=== PATIENT | male | born 1945 | race African-American/Black ===

== ENCOUNTER → 2017-08-16 | Outpatient (CLI) | payer OTHER ==
[2017-08-16 11:54] LABS: BASOPHILS % (AUTO) 0.4 % (0.2-1.0); EOSINOPHILS # (AUTO) 0.1 x10^3/uL (0.0-0.2); EOSINOPHILS % (AUTO) 1.3 % (0.9-2.9); HEMATOCRIT 32.7 % (42.0-54.0); HEMOGLOBIN 10.5 g/dL (13.5-18.0); LYMPHOCYTES % (AUTO) 14.6 % (21.0-51.0); MEAN CORPUSCULAR HEMOGLOBIN 23.1 pg (27.0-34.0); MEAN CORPUSCULAR HGB CONC 32.1 g/dL (33.0-35.0); MEAN CORPUSCULAR VOLUME 71.8 fL (80.0-100.0); MONOCYTES # (AUTO) 0.6 x10^3/uL (0.3-0.8); MONOCYTES % (AUTO) 8.1 % (0.0-13.0); NEUTROPHILS # (AUTO) 5.2 x10^3/uL (2.2-4.8); NEUTROPHILS % (AUTO) 75.6 % (42.0-75.0); PLATELET COUNT 293 X10^3/uL (150.0-450.0); RED BLOOD COUNT 4.56 X10^6/uL (4.7-6.0); RED CELL DISTRIBUTION WIDTH 16.2 % (11.6-16.5); WHITE BLOOD COUNT 6.9 X10^3/uL (3.6-10.0)
--- NOTE | 2017-08-16 12:13 | US ---
HISTORY: Frequent urination Study: Renal ultrasound: Multiplanar ultrasonographic examination of the kidneys and urinary bladde r was performed. Comparison: None Findings: On the images submitted me the kidneys overall are of normal size, echogenicity and echotexture bilat erally. Mild cortical thinning is noted bilaterally. No evidence of renal mass or hydronephrosis is noted. Right kidney: 10.8 cm in length by 5.7 x 5.8 cm. Left kidney: 11.7 cm in length by 6.4 x 7.1 cm. The visualized urinary bladder is normal. IMPRESSION: 1. 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 2. Otherwise, negative renal ultrasound. Reported By:
[2017-08-16 12:15] LABS: ALBUMIN 2.9 g/dL (3.4-5.0); CALCIUM 7.9 mg/dL (8.5-10.1); CARBON DIOXIDE 31.3 mmol/L (21-32); COR CA(FOR HYPOALB) 8.8 mg/dL (8.5-10.1); CREATININE 1.47 mg/dL (0.70-1.30); PHOSPHORUS 3.6 mg/dL (2.6-4.7)
[2017-08-16 12:16] LABS: HEMOGLOBIN A1C 6.8 %; HYPOCHROMASIA 1+; PLATELET MORPHOLOGY COMMENT NORMAL (NORMAL)
[2017-08-16 12:17] LABS: ANISOCYTOSIS SLIGHT; MICROCYTOSIS SLIGHT
[2017-08-16 12:56] LABS: TOTAL PROTEIN,URINE 10.7 mg/dl (0-11.9)
[2017-08-16 13:11] LABS: CREATININE,URINE 86.77 mg/dL (30-125)
== END ==
LOC: RAD 11:24
PROVIDERS: ATTEND Internal Medicine
DX: N18.2 Chronic kidney disease, stage 2 (mild) (principal); E11.9 Type 2 diabetes mellitus without complications
CPT/HCPCS: 36415; 76770; 80069; 82570; 83036; 83883; 84157; 85025; 86308

== ENCOUNTER 2020-12-22 08:09 | Observation (INO) ==
[2020-12-22 08:14] VITALS: BMI 39.4
--- NOTE | 2020-12-22 08:37 | DR.DIZZY ---
HPI Time seen Time Seen by Provider: 12/22/20 08:32 PCP Primary Care Physician: MELLISA HPI Comment HPI Comment: PATIENT WITH A HISTORY OF CORONARY ARTERY DISEASE, CORONARY STENTS X 7, COMPLAINS OF INCREASING DYSPNEA X 4 DAYS, INCREASING SWELLING IN LEGS,BODY ACHES . HAS PRODUCTIVE COUGH WHITE SPUTUM, LAST VACCINE MAR 2020. DENIES FEVER AND CHEST PAIN. Complaint Chief Complaint Doctor Comments: DYSPNEA, BODY ACHES Chief Complaint:: PT C/O BODY ACHES, WEAKNESS, SHORTNESS OF BREATH THAT STARTED 4 DAYS AGO. PT STATES HE HAS BEEN HAVING STOP AND CATCH HIS BREATH WHEN HE WALKS AROUND. COVID-19 Coronavirus risk:travel/contact w/high risk person: No Has patient experienced Coronavirus symptoms: Yes Coronavirus symptoms experienced: Shortness of Breath Source History Provided: Patient and Family Member Mode of Arrival Mode of Arrival: Wheelchair Timing Onset of Chief Complaint: 12/18/20 Onset of Symptoms Start Date: 12/18/20 Duration Duration: Constant Location of Weakness Weakness Location: Generalized Context Onset: With light exertion History of: DM Stroke Symptoms: None Severity Severity: Abnormal activity level PMH PMH Past Medical History: Yes Past Medical History: Anxiety, Diabetes, Dyslipidemia, Hypertension and IA Past Surgical History: Yes Surgical History: Angioplasty/Stents and Ortho Surgery Family History History of Family Medical Conditions: Yes Family Medical History: Diabetes Mellitus Social History Does patient currently use any type of tobacco product: No Have you used tobacco products in the last 12 months: No Type of Tobacco Use: None Does any household member use tobacco: No Alcohol Use: None Do you use any recreational Drugs:: No Lives With: Family Lives Where: Home Travel Risk Coronavirus risk:travel/contact w/high risk person: No Has patient experienced Coronavirus symptoms: Yes Coronavirus symptoms experienced: Shortness of Breath Infectious screening In the last 2 months have you had wt loss of >10#?: NO Have you had fever, night sweats or hemotysis?: No Have you traveled outside the country in the last 6 months?: No Isolation: Droplet ROS Review of Systems Constitutional: See HPI, Chills, Malaise and Other (GENERALIZED ACHES) Eyes: No Symptoms Reported ENTM: No Symptoms Reported Respiratoy: Productive Cough, Short of Breath (AT REST AND MARKED EXERTIONAL DYSPNEA) and Wheezing Cardiovascular: Edema Gastrointestinal/Abdominal: No Symptoms Reported Genitourinary: No Symptoms Reported Neurological: Weakness Musculoskeletal: No Symptoms Reported Integumentary: No Symptoms Reported Hematologic/Lymphatic: No Symptoms Reported Endocrine: No Symptoms Reported Psychiatric: No Symptoms Reported All Other Systems: Reviewed and Negative PE Vital Signs Vitals: Temperature 98.0 F Pulse Rate 82 Respiratory Rate 16 Blood Pressure [Right Arm] 143/65 Blood Pressure 174/77 O2 Sat by Pulse Oximetry 98 General Limitations: Physical Limitation General Appearance: Alert and In No Apparent Distress Head Head Exam: Normal Inspection Eyes Eye exam: Normal Appearance, PERRL and EOMI Pupils: Regular, Round: Bilateral ENT ENT Exam: Normal Exam Neck Neck Exam: Normal Inspection Chest Chest Inspection: Normal Inspection and Symmetric Chest Wall Rise Respiratory Respiratory Exam: Other (DECREASE BREATH SOUNDS 1/2 [address] UP POSTERIORLY, AUDIBLE WHEEZES FAINT) Respiratory Exam: Bilateral: Wheezing Cardiovascular Cardiovascular Exam: Regular Rate, Tachycardia and JVD Abdominal Exam Abdominal Exam: Normal Inspection, Normal Bowel Sounds and Soft Extremeties Extremities Exam: Edema (2+ PITTING EDEMA) Back Back Exam: Full ROM Neurologic Neurological Exam: Alert, Oriented X3 and CN II-XII Intact Cranial Nerve Exam: EOM Function (II, III, IV, ): Normal MDM Additional Information Obtained Additional Information Obtained From: Family Differential Diagnosis Differential Diagnosis Comment: ACUTE CONGESTIVE HEART FAILURE, PNEUMONIA COURSE Treatment Treatment: SALINE LOCK, LASIX 40MG IV, AFTER 2 SETS OF BLOOD CULTURES, ROCEPHIN 1GM IVPB Consultation Call Returned: 10:10 Consultation Comments: DISCUSSED FINDINGS WITH DR BYRNE FOR ADMIT TO OBSERVATION ROR Labs Reviewed Laboratory Results Reviewed?: Yes Result Diagrams: 12/22/20 08:24 12/22/20 08:24 Laboratory: WBC 8.6 X10^3/uL (3.6-10.0) 12/22/20 08:24 RBC 4.03 X10^6/uL (4.7-6.0) L 12/22/20 08:24 Hgb 10.2 g/dL (13.5-18.0) L 12/22/20 08:24 Hct 32.4 % (42.0-54.0) L 12/22/20 08:24 MCV 80.5 fL (80.0-100.0) 12/22/20 08:24 MCH 25.4 pg (27.0-34.0) L 12/22/20 08:24 MCHC 31.5 g/dL (33.0-35.0) L 12/22/20 08:24 RDW 17.0 % (11.6-16.5) H 12/22/20 08:24 Plt Count 257 X10^3/uL (150.0-450.0) 12/22/20 08:24 MPV 7.7 fL (7.4-11.0) 12/22/20 08:24 Neut % (Auto) 68.5 % (42.0-75.0) 12/22/20 08:24 Lymph % (Auto) 17.0 % (21.0-51.0) L 12/22/20 08:24 [place] % (Auto) 9.8 % (0.0-13.0) 12/22/20 08:24 Eos % (Auto) 4.2 % (0.9-2.9) H 12/22/20 08:24 Baso % (Auto) 0.5 % (0.2-1.0) 12/22/20 08:24 Neut # (Auto) 5.9 x10^3/uL (2.2-4.8) H 12/22/20 08:24 Lymph # (Auto) 1.5 X10^3/uL (1.3-2.9) 12/22/20 08:24 [place] # (Auto) 0.8 x10^3/uL (0.3-0.8) 12/22/20 08:24 Eos # (Auto) 0.4 x10^3/uL (0.0-0.2) H 12/22/20 08:24 Baso # (Auto) 0.0 X10^3/uL (0.0-0.1) 12/22/20 08:24 Absolute Nucleated RBC 0.3 /100WBC 12/22/20 08:24 PT 14.0 SECONDS (11.8-14.3) 12/22/20 08:24 INR Target Range - 12/22/20 08:24 INR 1.13 (0.8-1.3) 12/22/20 08:24 Sample Site Lrad 12/22/20 10:32 ABG pH 7.370 (7.35-7.45) 12/22/20 10:32 ABG pCO2 60.0 mmHg (35.0-45.0) H* 12/22/20 10:32 ABG pO2 65.0 mmHg (80.0-100.0) L 12/22/20 10:32 ABG HCO3 34.7 mmol/L (22-26) H* 12/22/20 10:32 ABG O2 Saturation 92.0 % (90-100) 12/22/20 10:32 ABG Base Excess 7.6 mmol/L (-2.0-2.0) H 12/22/20 10:32 Jose Test Pos 12/22/20 10:32 A-a Gradient 10.0 mmHg 12/22/20 10:32 FiO2 21.0 12/22/20 10:32 Blood Gas Comments Pt annel well elj cdn 12/22/20 10:32 Sodium 146 mmol/L (136-145) H 12/22/20 08:24 Corrected Sodium 147 mmol/L (136-145) H 12/22/20 08:24 Potassium 4.5 mmol/L (3.5-5.1) 12/22/20 08:24 Chloride 110 mmol/L (98-107) H 12/22/20 08:24 Carbon Dioxide 33.0 mmol/L (21-32) H 12/22/20 08:24 BUN 40 mg/dL (7-18) H 12/22/20 08:24 Creatinine 1.88 mg/dL (0.70-1.30) H 12/22/20 08:24 Est GFR (MDRD) Af Amer 45 (>60) L 12/22/20 08:24 Est GFR (MDRD) Non-Af 37 (>60) L 12/22/20 08:24 Glucose 150 mg/dL (65-99) H 12/22/20 08:24 Calcium 8.5 mg/dL (8.5-10.1) 12/22/20 08:24 Corrected Calcium 9.5 mg/dL (8.5-10.1) 12/22/20 08:24 Magnesium 1.9 mg/dL (1.7-2.9) 12/22/20 08:24 Total Bilirubin 0.60 mg/dL (0.2-1.0) 12/22/20 08:24 AST 26 Units/L (15-37) 12/22/20 08:24 ALT 24 Units/L (12-78) 12/22/20 08:24 Alkaline Phosphatase 90 Units/L (46-116) 12/22/20 08:24 Troponin I 0.09 ng/mL (0-1.5) 12/22/20 08:24 B-Natriuretic Peptide 525 pg/mL (0-79) H* 12/22/20 08:24 Total Protein 7.0 g/dL (6.4-8.2) 12/22/20 08:24 Albumin 2.8 g/dL (3.4-5.0) L 12/22/20 08:24 Globulin 4.2 g/dL (2.5-4.5) 12/22/20 08:24 Albumin/Globulin Ratio 0.7 Ratio (1.1-2.1) L 12/22/20 08:24 SARS-CoV-2 (PCR) Negative (NEGATIVE) 12/22/20 08:24 Influenza Type A (PCR) Negative (NEGATIVE) 12/22/20 08:24 Influenza Type B (PCR) Negative (NEGATIVE) 12/22/20 08:24 RSV (PCR) Negative (NEGATIVE) 12/22/20 08:24 XRAY X-ray Results: PORTABLE CHEST XRAY BILATERAL INFILTRATES WITH VENOUS HILAR CONGESTION EKG Rate: 86 [place]: Normal (PROLONGED QT INTERVAL) Opioid Opioid Risk Tool Age (Rohan box if 16-45): No History of Preadolescent Sexual Abuse: No Total: 0 Total Score Risk Category: Low Risk Copyright: Ned REINOSO predicting aberrant behaviors Diagnosis Discharge Problem: Pneumonia, Congestive cardiac failure
[2020-12-22] MEDS ORDERED: LASIX IVP ONE ×2 (08:38→08:46)
[2020-12-22 08:51] LABS: BASOPHILS % (AUTO) 0.5 % (0.2-1.0); EOSINOPHILS # (AUTO) 0.4 x10^3/uL (0.0-0.2); EOSINOPHILS % (AUTO) 4.2 % (0.9-2.9); HEMATOCRIT 32.4 % (42.0-54.0); HEMOGLOBIN 10.2 g/dL (13.5-18.0); LYMPHOCYTES # (AUTO) 1.5 X10^3/uL (1.3-2.9); MEAN CORPUSCULAR HEMOGLOBIN 25.4 pg (27.0-34.0); MEAN CORPUSCULAR HGB CONC 31.5 g/dL (33.0-35.0); MEAN CORPUSCULAR VOLUME 80.5 fL (80.0-100.0); MEAN PLATELET VOLUME 7.7 fL (7.4-11.0); MONOCYTES # (AUTO) 0.8 x10^3/uL (0.3-0.8); MONOCYTES % (AUTO) 9.8 % (0.0-13.0); NEUTROPHILS # (AUTO) 5.9 x10^3/uL (2.2-4.8); NEUTROPHILS % (AUTO) 68.5 % (42.0-75.0); PLATELET COUNT 257 X10^3/uL (150.0-450.0); RED BLOOD COUNT 4.03 X10^6/uL (4.7-6.0); WHITE BLOOD COUNT 8.6 X10^3/uL (3.6-10.0)
[2020-12-22 09:03] LABS: ALBUMIN 2.8 g/dL (3.4-5.0); CALCIUM 8.5 mg/dL (8.5-10.1); COR CA(FOR HYPOALB) 9.5 mg/dL (8.5-10.1); CREATININE 1.88 mg/dL (0.70-1.30); MAGNESIUM 1.9 mg/dL (1.7-2.9); TROPONIN I 0.09 ng/mL (0-1.5)
[2020-12-22] MEDS ORDERED: ROCEPHIN 1 GRAM IV PREMIX 1 G/50 ML IV.SOLN. IV ONE ×2 (09:13→09:20)
[2020-12-22] MEDS ORDERED: DUONEB 0.5 MG/3 MG (3 mL) NEB ONE ×2 (10:05→10:09)
[2020-12-22 10:38] LABS: ABG BASE EXCESS 7.6 mmol/L (-2.0-2.0)
[2020-12-22 10:39] LABS: ABG ALLEN TEST POS; ABG HCO3 34.7 mmol/L (22-26)
[2020-12-22] MEDS ORDERED: ZANAFLEX PO PRN (10:44)
[2020-12-22] MEDS ORDERED: TYLENOL 325 MG TAB PO PRN (10:44)
--- NOTE | 2020-12-22 11:53 | RAD ---
HISTORYDYSPNEA HTN, DM, STENTS, BACK SURGERY, ORTHO, CATARACTS REMOVEDSTUDYCHEST, 1 VIEWCOMPARISONNoneFINDINGSThe trachea is midline. The cardiac silhouette is enlarged. There is mild central vascular congestion but no interstitial or alveolar edema or pleural fluid.. The lungs are clear without focal infiltrate or effusion. The bony thorax is unremarkable.IMPRESSIONCardiomegaly with mild central vascular congestion but no overt findings of CHF and no acute infiltrates.Electronically signed by: DINO POTTER (Dec 22, 2020 11:51:06)
[2020-12-22] MEDS: DUONEB 0.5 MG/3 MG (3 mL) NEB SCH ×3 (14:17→20:35)
[2020-12-22] MEDS: ZITHROMAX INJ 500 MG VIAL 500 MG in D5W 250 ML IV 250 ML IV SCH (17:00)
[2020-12-22] MEDS ORDERED: NS 100 ML IV 100 ML ONE (17:24)
[2020-12-22] MEDS: ROCEPHIN 1 GRAM IV PREMIX 1 G/50 ML IV.SOLN. IV SCH (19:25)
[2020-12-22] MEDS: SNACK - Diabetic Appropriate PO SCH (19:30)
[2020-12-22] MEDS ORDERED: STERILE WATER IRRIGATION IR ONE (20:28)
[2020-12-22] MEDS: LASIX PO SCH (21:08)
[2020-12-22] MEDS: LIPITOR TAB 20 MG PO SCH (21:08)
[2020-12-22] MEDS: RANEXA PO SCH (21:08)
--- NOTE | 2020-12-22 23:46 | DR.H&P ---
H&P History & Physical for Day of: H&P Date: 12/22/20 Chief Complaint Chief Complaint: Altered mental status Shortness of breath Allergies Allergies Allergy/AdvReac Type Severity Reaction Status Date / Time morphine Allergy Verified 05/16/18 17:58 History of Present Illness History of Present Illness: Pt is a 75 year old male past medical history of CAD(Stentsx7), Hypertension, T2DM, IDA, presenting with increasing dyspnea for the past 4 days. He also reports having some cough, body aches, and leg swelling. He has been vaccinated for COVID-19. Denies fevers, chills. noted that patient did have some confusion after taking medication that he was recent ly prescribed for anxiety. Labs/imaging: Wbc 8.6, Hgb 10.2, Plt 257, Na 146, K 4.5, Creatinine 1.88, Glucose 150, BNP 525, Trop 0.09, COVID-19 negative, Blood culture negative, ABG was obtained that revealed; pH 7.37, pCO2 60, pO2 65, HCO3 34, O2 sat 92% on RA. CXR: Cardiomegaly with mild central vascular congestion but no overt findings of CHF and no acute infiltrates. Pt with elevated BNP with shortness of breath. Received IV lasix 40mg in ED. Will restart home medications. Order Echo. Was given Rocephin and Azithromycin in ED. Will determine continuation based on clinical evaluation. Review of medication list noted that patient just started on Buspar, likely cause of confusion, will disco ntinue. Keep on SSI. Continue diuresis, monitor, monitor and follow up labs/imaging. Past Medical History Past Medical History: Anxiety, Diabetes, Dyslipidemia, Hypertension and IA Past Surgical History Surgical History: Angioplasty/Stents and Ortho Surgery Family History Family Medical History: Diabetes Mellitus Social History Have you used tobacco products in the last 12 months: No Type of Tobacco Use: None Does any household member use tobacco: No Alcohol Use: None Drug Use: None Medications Home Medications: morphine Allergy (Verified 05/16/18 17:58) CONTINUE taking the following medications allopurinol 300 mg PO DAILY 12/22/20 [History] alprazolam 0.5 mg PO BID 12/22/20 [History] aspirin 81 mg PO DAILY 12/22/20 [History] buspirone 10 mg PO BID 12/22/20 [History] clopidogrel 75 mg PO DAILY 12/22/20 [History] finasteride 5 mg PO DAILY 12/22/20 [History] hydrocodone-acetaminophen 1 tab PO BID PRN 12/22/20 [History] insulin degludec [Tresiba FlexTouch U-100] 12 unit SUBCUT HS 12/22/20 [History] insulin degludec [Tresiba FlexTouch U-100] 16 unit SUBCUT DAILY 12/22/20 [History] naproxen 500 mg PO BID PRN 12/22/20 [History] tamsulosin 0.4 mg PO BID 12/22/20 [History] Labs Result Diagrams: 12/23/20 05:17 12/23/20 05:17 Labs: Laboratory WBC 8.6 X10^3/uL (3.6-10.0) 12/22/20 08:24 RBC 4.03 X10^6/uL (4.7-6.0) L 12/22/20 08:24 Hgb 10.2 g/dL (13.5-18.0) L 12/22/20 08:24 Hct 32.4 % (42.0-54.0) L 12/22/20 08:24 MCV 80.5 fL (80.0-100.0) 12/22/20 08:24 MCH 25.4 pg (27.0-34.0) L 12/22/20 08:24 MCHC 31.5 g/dL (33.0-35.0) L 12/22/20 08:24 RDW 17.0 % (11.6-16.5) H 12/22/20 08:24 Plt Count 257 X10^3/uL (150.0-450.0) 12/22/20 08:24 MPV 7.7 fL (7.4-11.0) 12/22/20 08:24 Neut % (Auto) 68.5 % (42.0-75.0) 12/22/20 08:24 Lymph % (Auto) 17.0 % (21.0-51.0) L 12/22/20 08:24 [place] % (Auto) 9.8 % (0.0-13.0) 12/22/20 08:24 Eos % (Auto) 4.2 % (0.9-2.9) H 12/22/20 08:24 Baso % (Auto) 0.5 % (0.2-1.0) 12/22/20 08:24 Neut # (Auto) 5.9 x10^3/uL (2.2-4.8) H 12/22/20 08:24 Lymph # (Auto) 1.5 X10^3/uL (1.3-2.9) 12/22/20 08:24 [place] # (Auto) 0.8 x10^3/uL (0.3-0.8) 12/22/20 08:24 Eos # (Auto) 0.4 x10^3/uL (0.0-0.2) H 12/22/20 08:24 Baso # (Auto) 0.0 X10^3/uL (0.0-0.1) 12/22/20 08:24 Absolute Nucleated RBC 0.3 /100WBC 12/22/20 08:24 PT 14.0 SECONDS (11.8-14.3) 12/22/20 08:24 INR Target Range - 12/22/20 08:24 INR 1.13 (0.8-1.3) 12/22/20 08:24 Sample Site Lrad 12/22/20 10:32 ABG pH 7.370 (7.35-7.45) 12/22/20 10:32 ABG pCO2 60.0 mmHg (35.0-45.0) H* 12/22/20 10:32 ABG pO2 65.0 mmHg (80.0-100.0) L 12/22/20 10:32 ABG HCO3 34.7 mmol/L (22-26) H* 12/22/20 10:32 ABG O2 Saturation 92.0 % (90-100) 12/22/20 10:32 ABG Base Excess 7.6 mmol/L (-2.0-2.0) H 12/22/20 10:32 Jose Test Pos 12/22/20 10:32 A-a Gradient 10.0 mmHg 12/22/20 10:32 FiO2 21.0 12/22/20 10:32 Blood Gas Comments Pt annel well elj cdn 12/22/20 10:32 Sodium 146 mmol/L (136-145) H 12/22/20 08:24 Corrected Sodium 147 mmol/L (136-145) H 12/22/20 08:24 Potassium 4.5 mmol/L (3.5-5.1) 12/22/20 08:24 Chloride 110 mmol/L (98-107) H 12/22/20 08:24 Carbon Dioxide 33.0 mmol/L (21-32) H 12/22/20 08:24 BUN 40 mg/dL (7-18) H 12/22/20 08:24 Creatinine 1.88 mg/dL (0.70-1.30) H 12/22/20 08:24 Est GFR (MDRD) Af Amer 45 (>60) L 12/22/20 08:24 Est GFR (MDRD) Non-Af 37 (>60) L 12/22/20 08:24 Glucose 150 mg/dL (65-99) H 12/22/20 08:24 POC Glucose (mg/dL) 185 mg/dL (65-99) H 12/22/20 21:06 Calcium 8.5 mg/dL (8.5-10.1) 12/22/20 08:24 Corrected Calcium 9.5 mg/dL (8.5-10.1) 12/22/20 08:24 Magnesium 1.9 mg/dL (1.7-2.9) 12/22/20 08:24 Total Bilirubin 0.60 mg/dL (0.2-1.0) 12/22/20 08:24 AST 26 Units/L (15-37) 12/22/20 08:24 ALT 24 Units/L (12-78) 12/22/20 08:24 Alkaline Phosphatase 90 Units/L (46-116) 12/22/20 08:24 Troponin I 0.09 ng/mL (0-1.5) 12/22/20 08:24 B-Natriuretic Peptide 525 pg/mL (0-79) H* 12/22/20 08:24 Total Protein 7.0 g/dL (6.4-8.2) 12/22/20 08:24 Albumin 2.8 g/dL (3.4-5.0) L 12/22/20 08:24 Globulin 4.2 g/dL (2.5-4.5) 12/22/20 08:24 Albumin/Globulin Ratio 0.7 Ratio (1.1-2.1) L 12/22/20 08:24 SARS-CoV-2 (PCR) Negative (NEGATIVE) 12/22/20 08:24 Influenza Type A (PCR) Negative (NEGATIVE) 12/22/20 08:24 Influenza Type B (PCR) Negative (NEGATIVE) 12/22/20 08:24 RSV (PCR) Negative (NEGATIVE) 12/22/20 08:24 Review of Systems Constitutional: Weakness; denies Fever and Chills Eyes: No Symptoms Reported ENT: No Symptoms Reported Respiratory: Shortness of Breath Cardiovascular: No Symptoms Reported Gastrointestinal: No Symptoms Reported Genitourinary: No Symptoms Reported Musculoskeletal: No Symptoms Reported Skin: No Symptoms Reported Neurological: No Symptoms Reported Physical Exam Vital Signs: Temperature 98.1 F Pulse Rate [Left Brachial] 98 Pulse Rate 93 Respiratory Rate 21 Blood Pressure [Left Arm] 170/82 Blood Pressure [Right Arm] 143/65 Blood Pressure 132/63 O2 Sat by Pulse Oximetry 95 Oriented: Normal Eyes: Normal Ear: Normal Nose: Normal Throat: Normal Respiratory: Diminished Throughout Cardiovascular: Normal : Normal Auscultation: Bowel Sounds: Normal Palpation: Normal Tenderness: Normal Skin: Normal Musculoskeletal: Normal Psychiatric: Normal Mood Description: Calm and Appropriate Affect: Normal Speech Pattern: Clear and Appropriate Assessment/Plan (1) CHF exacerbation: Status: Acute Review H&P Reviewed: Yes Patient was examined?: Yes
[2020-12-23] MEDS: DUONEB 0.5 MG/3 MG (3 mL) NEB SCH ×6 (00:31→21:14)
[2020-12-23 06:25] LABS: BASOPHILS % (AUTO) 0.4 % (0.2-1.0); EOSINOPHILS # (AUTO) 0.3 x10^3/uL (0.0-0.2); EOSINOPHILS % (AUTO) 4.4 % (0.9-2.9); HEMATOCRIT 30.5 % (42.0-54.0); HEMOGLOBIN 9.8 g/dL (13.5-18.0); LYMPHOCYTES # (AUTO) 1.1 X10^3/uL (1.3-2.9); LYMPHOCYTES % (AUTO) 15.9 % (21.0-51.0); MEAN CORPUSCULAR HEMOGLOBIN 25.5 pg (27.0-34.0); MEAN CORPUSCULAR VOLUME 79.5 fL (80.0-100.0); MEAN PLATELET VOLUME 7.9 fL (7.4-11.0); MONOCYTES # (AUTO) 0.7 x10^3/uL (0.3-0.8); MONOCYTES % (AUTO) 10.3 % (0.0-13.0); NEUTROPHILS # (AUTO) 4.9 x10^3/uL (2.2-4.8); PLATELET COUNT 240 X10^3/uL (150.0-450.0); RED BLOOD COUNT 3.84 X10^6/uL (4.7-6.0); RED CELL DISTRIBUTION WIDTH 16.9 % (11.6-16.5); WHITE BLOOD COUNT 7.1 X10^3/uL (3.6-10.0)
[2020-12-23 06:41] LABS: ALANINE AMINOTRANSFERASE 20 Units/L (12-78); ALBUMIN 2.5 g/dL (3.4-5.0); ALKALINE PHOSPHATASE 83 Units/L (46-116); ASPARTATE AMINO TRANSFERASE 23 Units/L (15-37); BLOOD UREA NITROGEN 32 mg/dL (7-18); CALCIUM 8.3 mg/dL (8.5-10.1); CARBON DIOXIDE 31.6 mmol/L (21-32); CHLORIDE 108 mmol/L (98-107); COR CA(FOR HYPOALB) 9.5 mg/dL (8.5-10.1); CREATININE 1.52 mg/dL (0.70-1.30); SODIUM 145 mmol/L (136-145); TOTAL PROTEIN 6.3 g/dL (6.4-8.2); eGFR NON BLACK RACES 48 (>60)
--- NOTE | 2020-12-23 07:38 | RAD ---
HISTORYSOBSTUDYCHEST, 1 [id number]/2021FINDINGSThe cardiomediastinal silhouette is stable. Similar congestion with developing bilateral airspace opacities. The bony thorax appears intact.IMPRESSIONDeveloping bilateral airspace opacities which may be due to congestion/edema and/or pneumonia.Electronically signed by: ABBEY YAN (Dec 23, 2020 07:36:25)
[2020-12-23] MEDS ORDERED: LASIX IVP ONE (08:06)
[2020-12-23] MEDS: SINGULAIR TAB 10 MG PO SCH (09:23)
[2020-12-23] MEDS: ASPIRIN EC 81 MG PO SCH (09:23)
[2020-12-23] MEDS: PEPCID TAB 40 MG PO SCH (09:24)
[2020-12-23] MEDS: AMARYL TAB 4 MG PO SCH (09:24)
[2020-12-23] MEDS: ZETIA TAB 10 MG PO SCH (09:25)
[2020-12-23] MEDS: RANEXA PO SCH ×2 (09:25→20:37)
[2020-12-23] MEDS: PROSCAR PO SCH (09:25)
[2020-12-23] MEDS: LASIX PO SCH ×2 (10:06→20:37)
[2020-12-23] MEDS: LOPRESSOR TAB 50 MG PO SCH (12:15)
[2020-12-23] MEDS: ROCEPHIN 1 GRAM IV PREMIX 1 G/50 ML IV.SOLN. IV SCH (19:14)
[2020-12-23] MEDS: ZITHROMAX INJ 500 MG VIAL 500 MG in D5W 250 ML IV 250 ML IV SCH (19:15)
[2020-12-23] MEDS: SNACK - Diabetic Appropriate PO SCH (20:00)
[2020-12-23] MEDS: LIPITOR TAB 20 MG PO SCH (20:37)
[2020-12-23] MEDS: XANAX PO SCH (20:37)
[2020-12-23] MEDS: HumuLIN R SUBCUT PRN (20:38)
--- NOTE | 2020-12-23 23:52 | PCM.PROG ---
Progress Note Progress Note for Day of Date of Exam: 12/23/20 Subjective Subjective: Pt is a 75 year old male past medical history of CAD(Stentsx7), Hypertension, T2DM, IDA(CPAP), admitted for CHF exacerbation. This morning pt reports feeling significantly better. States that breathing has improved and does not feel as short of breath as before. His mental status appears to be back to baseline, discontinued Buspar. Labs/imaging: Wbc 7.1, Hgb 9.8, Plt 240, Na 145, K 4.0, Creatinine 1.52, Glucose 95, Blood culture NGTD, CXR: Developing bilateral airspace opacities which may be due to congestion/edema and/or pneumonia. Home medications restarted. Will give another IV Lasix 40mg x 1 dose and restart home po lasix 40mg BID. Echo ordered, results pending. Do not believe at this time infectious process, will discontinue Rocephin and Azithromycin, can restart based on clinical if indicated. Continue diuresis, monitor, and follow up labs/imaging. Past Medical Family Social History Past Med/Fam/Surg Hx: No changes since H&P Allergies: Allergies morphine Allergy (Verified 05/16/18 17:58) Review of Systems ROS: No change since H&P Vital Signs and I&O's Vital Signs: Temperature 97.8 F Pulse Rate [Left Brachial] 84 Pulse Rate 84 Respiratory Rate 20 Blood Pressure [Left Arm] 117/57 Blood Pressure [Right Arm] 164/66 Blood Pressure 132/63 O2 Sat by Pulse Oximetry 100 Intake and Output: Intake & Output 12/20/20 12/21/20 12/22/20 12/23/20 23:59 23:59 23:59 23:59 Intake Total 2725 / 2725 980 / 980 Output Total 1900 / 1900 1600 / 1600 Balance 825 / 825 -620 / -620 Physical Exam Oriented: Normal Eyes: Normal Ear: Normal Nose: Normal Throat: Normal Respiratory: Diminished Cardiovascular: Normal : Normal Auscultation: Bowel Sounds: Normal Tenderness: Normal Skin: Normal Musculoskeletal: Normal Psychiatric: Normal Mood Description: Calm and Appropriate Affect: Normal Speech Pattern: Clear and Appropriate Laboratory and Diagnostics Result Diagrams: 12/23/20 05:17 12/23/20 05:17 Labs: Laboratory WBC 7.1 X10^3/uL (3.6-10.0) 12/23/20 05:17 RBC 3.84 X10^6/uL (4.7-6.0) L 12/23/20 05:17 Hgb 9.8 g/dL (13.5-18.0) L 12/23/20 05:17 Hct 30.5 % (42.0-54.0) L 12/23/20 05:17 MCV 79.5 fL (80.0-100.0) L 12/23/20 05:17 MCH 25.5 pg (27.0-34.0) L 12/23/20 05:17 MCHC 32.0 g/dL (33.0-35.0) L 12/23/20 05:17 RDW 16.9 % (11.6-16.5) H 12/23/20 05:17 Plt Count 240 X10^3/uL (150.0-450.0) 12/23/20 05:17 MPV 7.9 fL (7.4-11.0) 12/23/20 05:17 Neut % (Auto) 69.0 % (42.0-75.0) 12/23/20 05:17 Lymph % (Auto) 15.9 % (21.0-51.0) L 12/23/20 05:17 [place] % (Auto) 10.3 % (0.0-13.0) 12/23/20 05:17 Eos % (Auto) 4.4 % (0.9-2.9) H 12/23/20 05:17 Baso % (Auto) 0.4 % (0.2-1.0) 12/23/20 05:17 Neut # (Auto) 4.9 x10^3/uL (2.2-4.8) H 12/23/20 05:17 Lymph # (Auto) 1.1 X10^3/uL (1.3-2.9) L 12/23/20 05:17 [place] # (Auto) 0.7 x10^3/uL (0.3-0.8) 12/23/20 05:17 Eos # (Auto) 0.3 x10^3/uL (0.0-0.2) H 12/23/20 05:17 Baso # (Auto) 0.0 X10^3/uL (0.0-0.1) 12/23/20 05:17 Absolute Nucleated RBC 0.2 /100WBC 12/23/20 05:17 PT 14.0 SECONDS (11.8-14.3) 12/22/20 08:24 INR Target Range - 12/22/20 08:24 INR 1.13 (0.8-1.3) 12/22/20 08:24 Sample Site Lrad 12/22/20 10:32 ABG pH 7.370 (7.35-7.45) 12/22/20 10:32 ABG pCO2 60.0 mmHg (35.0-45.0) H* 12/22/20 10:32 ABG pO2 65.0 mmHg (80.0-100.0) L 12/22/20 10:32 ABG HCO3 34.7 mmol/L (22-26) H* 12/22/20 10:32 ABG O2 Saturation 92.0 % (90-100) 12/22/20 10:32 ABG Base Excess 7.6 mmol/L (-2.0-2.0) H 12/22/20 10:32 Jose Test Pos 12/22/20 10:32 A-a Gradient 10.0 mmHg 12/22/20 10:32 FiO2 21.0 12/22/20 10:32 Blood Gas Comments Pt annel well elj cdn 12/22/20 10:32 Sodium 145 mmol/L (136-145) 12/23/20 05:17 Corrected Sodium TNP 12/23/20 05:17 Potassium 4.0 mmol/L (3.5-5.1) 12/23/20 05:17 Chloride 108 mmol/L (98-107) H 12/23/20 05:17 Carbon Dioxide 31.6 mmol/L (21-32) 12/23/20 05:17 BUN 32 mg/dL (7-18) H 12/23/20 05:17 Creatinine 1.52 mg/dL (0.70-1.30) H 12/23/20 05:17 Est GFR (MDRD) Af Amer 57 (>60) L 12/23/20 05:17 Est GFR (MDRD) Non-Af 48 (>60) L 12/23/20 05:17 Glucose 95 mg/dL (65-99) 12/23/20 05:17 POC Glucose (mg/dL) 266 mg/dL (65-99) H 12/23/20 20:10 Calcium 8.3 mg/dL (8.5-10.1) L 12/23/20 05:17 Corrected Calcium 9.5 mg/dL (8.5-10.1) 12/23/20 05:17 Magnesium 1.9 mg/dL (1.7-2.9) 12/22/20 08:24 Total Bilirubin 0.50 mg/dL (0.2-1.0) 12/23/20 05:17 AST 23 Units/L (15-37) 12/23/20 05:17 ALT 20 Units/L (12-78) 12/23/20 05:17 Alkaline Phosphatase 83 Units/L (46-116) 12/23/20 05:17 Troponin I 0.09 ng/mL (0-1.5) 12/22/20 08:24 B-Natriuretic Peptide 525 pg/mL (0-79) H* 12/22/20 08:24 Total Protein 6.3 g/dL (6.4-8.2) L 12/23/20 05:17 Albumin 2.5 g/dL (3.4-5.0) L 12/23/20 05:17 Globulin 3.8 g/dL (2.5-4.5) 12/23/20 05:17 Albumin/Globulin Ratio 0.7 Ratio (1.1-2.1) L 12/23/20 05:17 SARS-CoV-2 (PCR) Negative (NEGATIVE) 12/22/20 08:24 Influenza Type A (PCR) Negative (NEGATIVE) 12/22/20 08:24 Influenza Type B (PCR) Negative (NEGATIVE) 12/22/20 08:24 RSV (PCR) Negative (NEGATIVE) 12/22/20 08:24 Plan (1) CHF exacerbation: Status: Acute
[2020-12-24] MEDS: DUONEB 0.5 MG/3 MG (3 mL) NEB SCH ×6 (00:25→21:53)
--- NOTE | 2020-12-24 06:09 | RAD ---
HISTORYCHF pneumoniaSTUDYPortable AP [id number]/2021FINDINGSHeart size remains upper normal. Pulmonary vascular congestion with distention of upper lobe pulmonary vasculature. Diffuse interstitial process throughout both lungs. No localized airspace consolidation or pleural fluid identified.IMPRESSIONNo change. Findings remain consistent with mild CHF and probable associated pneumonia.Electronically signed by: VIK POWELL (Dec 24, 2020 06:07:17)
[2020-12-24 06:38] LABS: ALBUMIN 2.4 g/dL (3.4-5.0); CALCIUM 8.2 mg/dL (8.5-10.1); CARBON DIOXIDE 33.6 mmol/L (21-32); COR CA(FOR HYPOALB) 9.5 mg/dL (8.5-10.1); CREATININE 1.49 mg/dL (0.70-1.30); TOTAL PROTEIN 6.3 g/dL (6.4-8.2)
[2020-12-24 06:41] LABS: BASOPHILS % (AUTO) 0.3 % (0.2-1.0); EOSINOPHILS # (AUTO) 0.3 x10^3/uL (0.0-0.2); EOSINOPHILS % (AUTO) 4.3 % (0.9-2.9); HEMATOCRIT 29.8 % (42.0-54.0); HEMOGLOBIN 9.7 g/dL (13.5-18.0); LYMPHOCYTES # (AUTO) 1.3 X10^3/uL (1.3-2.9); LYMPHOCYTES % (AUTO) 18.2 % (21.0-51.0); MEAN CORPUSCULAR HEMOGLOBIN 25.6 pg (27.0-34.0); MEAN CORPUSCULAR HGB CONC 32.7 g/dL (33.0-35.0); MEAN CORPUSCULAR VOLUME 78.1 fL (80.0-100.0); MEAN PLATELET VOLUME 7.9 fL (7.4-11.0); MONOCYTES # (AUTO) 0.8 x10^3/uL (0.3-0.8); MONOCYTES % (AUTO) 10.8 % (0.0-13.0); NEUTROPHILS # (AUTO) 4.8 x10^3/uL (2.2-4.8); NEUTROPHILS % (AUTO) 66.4 % (42.0-75.0); PLATELET COUNT 252 X10^3/uL (150.0-450.0); RED BLOOD COUNT 3.81 X10^6/uL (4.7-6.0); RED CELL DISTRIBUTION WIDTH 16.9 % (11.6-16.5); WHITE BLOOD COUNT 7.3 X10^3/uL (3.6-10.0)
[2020-12-24] MEDS ORDERED: POTASSIUM CHLORIDE LIQ 20 MEQ UDC PO PRN (07:36)
[2020-12-24] MEDS ORDERED: K-RIDER 10 MEQ/NS 100 ML 10 MEQ/100 ML BAG IV PRN (07:36)
[2020-12-24] MEDS ORDERED: KLOR-CON PO PRN (07:36)
[2020-12-24] MEDS ORDERED: POTASSIUM CHL 40 MEQ/NS 0.45% 500 ML IV PRN (07:36)
[2020-12-24] MEDS ORDERED: POTASSIUM CHL 60 MEQ/NS 0.45% 500 ML IV PRN (07:36)
[2020-12-24] MEDS ORDERED: K-DUR TAB 20 MEQ PO PRN (07:36)
[2020-12-24] MEDS ORDERED: MICRO K EXTEN CAP 10 MEQ PO PRN (07:36)
[2020-12-24] MEDS: PROSCAR PO SCH (09:24)
[2020-12-24] MEDS: LASIX PO SCH ×2 (09:24→21:20)
[2020-12-24] MEDS: SINGULAIR TAB 10 MG PO SCH (09:24)
[2020-12-24] MEDS: AMARYL TAB 4 MG PO SCH (09:24)
[2020-12-24] MEDS: RANEXA PO SCH ×2 (09:24→21:42)
[2020-12-24] MEDS: PEPCID TAB 40 MG PO SCH (09:24)
[2020-12-24] MEDS: ASPIRIN EC 81 MG PO SCH (09:24)
[2020-12-24] MEDS: LOPRESSOR TAB 50 MG PO SCH (09:25)
[2020-12-24] MEDS: ZETIA TAB 10 MG PO SCH (09:25)
[2020-12-24] MEDS: PLAVIX PO SCH (09:25)
[2020-12-24] MEDS ORDERED: NS 100 ML IV 100 ML ONE ×2 (09:28→11:33)
[2020-12-24] MEDS: MAGNESIUM SULFATE 1 GRAM/100 mL PREMIX 1 GM/100 ML BAG IV PRN ×2 (09:30→10:49)
[2020-12-24] MEDS ORDERED: TOPROL XL PO ONE (12:55)
[2020-12-24] MEDS: ASTELIN NASAL SPRAY ENOSTRIL SCH (13:00)
[2020-12-24] MEDS: TOPROL XL PO SCH (13:00)
[2020-12-24] MEDS: AVELOX TAB 400 MG PO SCH (13:00)
[2020-12-24] MEDS: HumuLIN R SUBCUT PRN ×2 (13:00→21:40)
[2020-12-24] MEDS: SNACK - Diabetic Appropriate PO SCH (20:25)
[2020-12-24] MEDS: LIPITOR TAB 20 MG PO SCH (21:41)
[2020-12-24] MEDS: XANAX PO SCH (21:42)
[2020-12-25] MEDS: DUONEB 0.5 MG/3 MG (3 mL) NEB SCH ×6 (00:25→20:37)
[2020-12-25 06:07] LABS: BASOPHILS % (AUTO) 0.6 % (0.2-1.0); EOSINOPHILS # (AUTO) 0.3 x10^3/uL (0.0-0.2); EOSINOPHILS % (AUTO) 3.9 % (0.9-2.9); HEMOGLOBIN 10.9 g/dL (13.5-18.0); LYMPHOCYTES # (AUTO) 1.3 X10^3/uL (1.3-2.9); LYMPHOCYTES % (AUTO) 15.9 % (21.0-51.0); MEAN CORPUSCULAR HEMOGLOBIN 25.6 pg (27.0-34.0); MEAN CORPUSCULAR HGB CONC 32.1 g/dL (33.0-35.0); MEAN CORPUSCULAR VOLUME 79.6 fL (80.0-100.0); MEAN PLATELET VOLUME 7.7 fL (7.4-11.0); MONOCYTES # (AUTO) 0.9 x10^3/uL (0.3-0.8); MONOCYTES % (AUTO) 10.3 % (0.0-13.0); NEUTROPHILS # (AUTO) 5.9 x10^3/uL (2.2-4.8); NEUTROPHILS % (AUTO) 69.3 % (42.0-75.0); PLATELET COUNT 260 X10^3/uL (150.0-450.0); RED BLOOD COUNT 4.27 X10^6/uL (4.7-6.0); RED CELL DISTRIBUTION WIDTH 17.3 % (11.6-16.5); WHITE BLOOD COUNT 8.5 X10^3/uL (3.6-10.0)
--- NOTE | 2020-12-25 06:25 | RAD ---
HISTORYPNEUMONIA, EARLY CHFSTUDYSingle-view [id number]/2021FINDINGSThe trachea is midline. The cardiac silhouette is enlarged with a tortuous thoracic aorta. Persistent interstitial and prominent vascular changes which underlying CHF is suspected. Early consolidation within the right lower lobe is noted to be present may represent developing infiltrate or worsening pulmonary edema. The bony thorax is unremarkable.IMPRESSIONDiffuse interstitial lung changes with prominent vascular markings with developing consolidation right lower lobe. Continued follow-up will be needed.Electronically signed by: JASMINE ESCAMILLA (Dec 25, 2020 06:24:01)
[2020-12-25 06:26] LABS: ALANINE AMINOTRANSFERASE 23 Units/L (12-78); ALBUMIN 2.6 g/dL (3.4-5.0); ALKALINE PHOSPHATASE 89 Units/L (46-116); ASPARTATE AMINO TRANSFERASE 22 Units/L (15-37); BLOOD UREA NITROGEN 26 mg/dL (7-18); CALCIUM 8.7 mg/dL (8.5-10.1); CHLORIDE 105 mmol/L (98-107); COR CA(FOR HYPOALB) 9.8 mg/dL (8.5-10.1); COR NA(FOR HYPERGLY) 144 mmol/L (136-145); CREATININE 1.44 mg/dL (0.70-1.30); SODIUM 143 mmol/L (136-145); TOTAL PROTEIN 6.9 g/dL (6.4-8.2); eGFR NON BLACK RACES 51 (>60)
[2020-12-25] MEDS: NORCO 5/325 MG TAB PO PRN (06:45)
[2020-12-25] MEDS ORDERED: TOPROL XL PO ONE (08:08)
[2020-12-25] MEDS: LASIX PO SCH ×2 (08:29→20:45)
[2020-12-25] MEDS: PROSCAR PO SCH (08:29)
[2020-12-25] MEDS: PEPCID TAB 40 MG PO SCH (08:29)
[2020-12-25] MEDS: ASPIRIN EC 81 MG PO SCH (08:29)
[2020-12-25] MEDS: ASTELIN NASAL SPRAY ENOSTRIL SCH (08:29)
[2020-12-25] MEDS: AMARYL TAB 4 MG PO SCH (08:29)
[2020-12-25] MEDS: PLAVIX PO SCH (08:29)
[2020-12-25] MEDS: TOPROL XL PO SCH (08:30)
[2020-12-25] MEDS: ZETIA TAB 10 MG PO SCH (08:30)
[2020-12-25] MEDS: RANEXA PO SCH ×2 (08:30→20:45)
[2020-12-25] MEDS: SINGULAIR TAB 10 MG PO SCH (08:30)
[2020-12-25] MEDS: MAGNESIUM SULFATE 1 GRAM/100 mL PREMIX 1 GM/100 ML BAG IV PRN ×2 (10:00→11:50)
[2020-12-25] MEDS: AVELOX TAB 400 MG PO SCH (13:21)
[2020-12-25] MEDS: HumuLIN R SUBCUT PRN ×2 (18:17→21:09)
[2020-12-25] MEDS: SNACK - Diabetic Appropriate PO SCH (20:15)
[2020-12-25] MEDS: LIPITOR TAB 20 MG PO SCH (20:45)
[2020-12-25] MEDS: XANAX PO SCH (20:45)
[2020-12-26] MEDS: DUONEB 0.5 MG/3 MG (3 mL) NEB SCH ×3 (00:55→09:50)
[2020-12-26] MEDS: NORCO 5/325 MG TAB PO PRN (04:04)
[2020-12-26 05:23] LABS: BASOPHILS % (AUTO) 0.5 % (0.2-1.0); EOSINOPHILS # (AUTO) 0.4 x10^3/uL (0.0-0.2); HEMATOCRIT 33.8 % (42.0-54.0); HEMOGLOBIN 10.9 g/dL (13.5-18.0); LYMPHOCYTES # (AUTO) 1.8 X10^3/uL (1.3-2.9); LYMPHOCYTES % (AUTO) 21.5 % (21.0-51.0); MEAN CORPUSCULAR HEMOGLOBIN 25.4 pg (27.0-34.0); MEAN CORPUSCULAR HGB CONC 32.3 g/dL (33.0-35.0); MEAN CORPUSCULAR VOLUME 78.7 fL (80.0-100.0); MONOCYTES # (AUTO) 0.8 x10^3/uL (0.3-0.8); MONOCYTES % (AUTO) 9.9 % (0.0-13.0); NEUTROPHILS # (AUTO) 5.4 x10^3/uL (2.2-4.8); NEUTROPHILS % (AUTO) 63.1 % (42.0-75.0); PLATELET COUNT 266 X10^3/uL (150.0-450.0); RED CELL DISTRIBUTION WIDTH 17.2 % (11.6-16.5); WHITE BLOOD COUNT 8.5 X10^3/uL (3.6-10.0)
[2020-12-26 05:42] LABS: ALANINE AMINOTRANSFERASE 23 Units/L (12-78); ALBUMIN 2.8 g/dL (3.4-5.0); ALKALINE PHOSPHATASE 95 Units/L (46-116); ASPARTATE AMINO TRANSFERASE 23 Units/L (15-37); BLOOD UREA NITROGEN 31 mg/dL (7-18); CALCIUM 8.7 mg/dL (8.5-10.1); CARBON DIOXIDE 33.5 mmol/L (21-32); CHLORIDE 103 mmol/L (98-107); COR CA(FOR HYPOALB) 9.7 mg/dL (8.5-10.1); CREATININE 1.59 mg/dL (0.70-1.30); SODIUM 142 mmol/L (136-145); TOTAL PROTEIN 7.2 g/dL (6.4-8.2); eGFR NON BLACK RACES 45 (>60)
--- NOTE | 2020-12-26 06:43 | RAD ---
HISTORYCHFSTUDYAP [id number]/2021FINDINGSStable cardiac prominence and pulmonary vascular congestion. Indistinct bilateral perihilar and lower lobe infiltrates, right greater than left without additional consolidation, pleural fluid or pneumothorax.IMPRESSIONNo change. Described findings consistent with stable pneumonia and or asymmetric edema.Electronically signed by: VIK POWELL (Dec 26, 2020 06:41:55)
[2020-12-26] MEDS ORDERED: TOPROL XL PO ONE (08:02)
[2020-12-26] MEDS: ASPIRIN EC 81 MG PO SCH (08:54)
[2020-12-26] MEDS: PEPCID TAB 40 MG PO SCH (08:55)
[2020-12-26] MEDS: TOPROL XL PO SCH (08:55)
[2020-12-26] MEDS: RANEXA PO SCH (08:55)
[2020-12-26] MEDS: LASIX PO SCH (08:55)
[2020-12-26] MEDS: SINGULAIR TAB 10 MG PO SCH (08:55)
[2020-12-26] MEDS: ZETIA TAB 10 MG PO SCH (08:56)
[2020-12-26] MEDS: PLAVIX PO SCH (08:56)
[2020-12-26] MEDS: ASTELIN NASAL SPRAY ENOSTRIL SCH (08:56)
[2020-12-26] MEDS: PROSCAR PO SCH (08:56)
[2020-12-26] MEDS: AMARYL TAB 4 MG PO SCH (08:56)
--- NOTE | 2020-12-26 09:47 | W.DIS.FURT ---
Summary of Discharge Discharge Summary of Date Date of Exam: 12/26/20 Admission Date Date of Admission: 12/22/20 Admission Diagnosis Patient Problems (Updated 12/23/20 @ 23:45 by Peter Justice) Pneumonia (Acute) J18.9 Hospital Course: Pt is a 75 year old male past medical history of CAD(Stentsx7), Hypertension, T2DM, IDA(CPAP), admitted for CHF exacerbation and pneumonia. He was treated with IV lasix and then restarted on his home lasix dose. His home metoprolol dose was also increased. Labs/imaging: Wbc 8.5, Hgb 10.9, Plt 266, Na 142, K 4.3, Creatinine 1.59, Glucose 67, Blood culture NGTD, Echo EF:56%. Pt was treated with moxifloxacin for pneumonia. Pt responded well to treatments. He did not require any home oxygen. He was discharged in stable condition. Rx Moxifloxacin, metoprolol succ 100mg, and nebulizer w/ duonebs. Pt instructed to follow up with pcp in 3-5 days. Vital Signs: Vital Signs (72 hours) 12/23/20 12:00 12/23/20 13:49 12/23/20 16:00 Temperature 98.6 F 98.9 F Pulse Rate 84 Pulse Rate [Left Brachial] 104 H 87 Respiratory Rate 19 20 Blood Pressure [Left Arm] 138/63 126/62 O2 Sat by Pulse Oximetry 94 L 98 97 12/23/20 16:41 12/23/20 20:00 12/23/20 21:14 Temperature 97.8 F Pulse Rate 84 84 Pulse Rate [Left Brachial] 84 Respiratory Rate 20 Blood Pressure [Left Arm] 117/57 O2 Sat by Pulse Oximetry 95 98 100 12/24/20 00:00 12/24/20 00:26 12/24/20 04:00 Temperature 98.1 F 98.9 F Pulse Rate 80 Pulse Rate [Left Brachial] 87 87 Respiratory Rate 18 20 Blood Pressure [Left Arm] 136/63 121/71 O2 Sat by Pulse Oximetry 95 96 92 L 12/24/20 08:00 12/24/20 09:16 12/24/20 12:00 Temperature 98.2 F 98.0 F Pulse Rate 98 H Pulse Rate [Left Brachial] 95 H 81 Respiratory Rate 20 20 Blood Pressure [Left Arm] 153/70 137/70 O2 Sat by Pulse Oximetry 93 L 95 95 12/24/20 16:00 12/24/20 20:00 12/24/20 21:53 Temperature 97.8 F 97.6 F Pulse Rate 78 Pulse Rate [Left Brachial] 79 77 Respiratory Rate 20 21 Blood Pressure [Left Arm] 162/74 116/56 O2 Sat by Pulse Oximetry 94 L 96 96 12/25/20 00:00 12/25/20 00:25 12/25/20 04:00 Temperature 97.8 F 98.0 F Pulse Rate 73 Pulse Rate [Left Brachial] 80 75 Respiratory Rate 20 20 Blood Pressure [Left Arm] 121/56 118/55 O2 Sat by Pulse Oximetry 93 L 97 93 L 12/25/20 06:45 12/25/20 07:45 12/25/20 08:00 Temperature 98.3 F Pulse Rate Pulse Rate [Left Brachial] 80 Respiratory Rate 20 20 18 Blood Pressure [Left Arm] 123/63 O2 Sat by Pulse Oximetry 98 12/25/20 09:34 12/25/20 12:00 12/25/20 16:00 Temperature 97.8 F 97.6 F Pulse Rate 77 Pulse Rate [Left Brachial] 75 81 Respiratory Rate 20 22 Blood Pressure [Left Arm] 124/61 134/63 O2 Sat by Pulse Oximetry 96 93 L 93 L 12/25/20 20:00 12/25/20 20:37 12/26/20 00:00 Temperature 98.7 F 97.5 F L Pulse Rate 89 Pulse Rate [Left Brachial] 78 72 Respiratory Rate 21 20 Blood Pressure [Left Arm] 140/64 126/59 O2 Sat by Pulse Oximetry 91 L 97 98 12/26/20 00:55 12/26/20 04:00 12/26/20 04:04 Temperature 97.8 F Pulse Rate 88 Pulse Rate [Left Brachial] 82 Respiratory Rate 20 18 Blood Pressure [Left Arm] 122/56 O2 Sat by Pulse Oximetry 97 97 12/26/20 05:04 12/26/20 05:15 12/26/20 07:48 Temperature 98.4 F Pulse Rate 85 Pulse Rate [Left Brachial] 112 H Respiratory Rate 20 20 Blood Pressure [Left Arm] 138/73 O2 Sat by Pulse Oximetry 97 94 L Labs: Laboratory Last Values WBC 8.5 X10^3/uL (3.6-10.0) 12/26/20 04:00 RBC 4.30 X10^6/uL (4.7-6.0) L 12/26/20 04:00 Hgb 10.9 g/dL (13.5-18.0) L 12/26/20 04:00 Hct 33.8 % (42.0-54.0) L 12/26/20 04:00 MCV 78.7 fL (80.0-100.0) L 12/26/20 04:00 MCH 25.4 pg (27.0-34.0) L 12/26/20 04:00 MCHC 32.3 g/dL (33.0-35.0) L 12/26/20 04:00 RDW 17.2 % (11.6-16.5) H 12/26/20 04:00 Plt Count 266 X10^3/uL (150.0-450.0) 12/26/20 04:00 MPV 8.0 fL (7.4-11.0) 12/26/20 04:00 Neut % (Auto) 63.1 % (42.0-75.0) 12/26/20 04:00 Lymph % (Auto) 21.5 % (21.0-51.0) 12/26/20 04:00 [place] % (Auto) 9.9 % (0.0-13.0) 12/26/20 04:00 Eos % (Auto) 5.0 % (0.9-2.9) H 12/26/20 04:00 Baso % (Auto) 0.5 % (0.2-1.0) 12/26/20 04:00 Neut # (Auto) 5.4 x10^3/uL (2.2-4.8) H 12/26/20 04:00 Lymph # (Auto) 1.8 X10^3/uL (1.3-2.9) 12/26/20 04:00 [place] # (Auto) 0.8 x10^3/uL (0.3-0.8) 12/26/20 04:00 Eos # (Auto) 0.4 x10^3/uL (0.0-0.2) H 12/26/20 04:00 Baso # (Auto) 0.0 X10^3/uL (0.0-0.1) 12/26/20 04:00 Absolute Nucleated RBC 0.1 /100WBC 12/26/20 04:00 PT 14.0 SECONDS (11.8-14.3) 12/22/20 08:24 INR Target Range - 12/22/20 08:24 INR 1.13 (0.8-1.3) 12/22/20 08:24 Sample Site Lrad 12/22/20 10:32 ABG pH 7.370 (7.35-7.45) 12/22/20 10:32 ABG pCO2 60.0 mmHg (35.0-45.0) H* 12/22/20 10:32 ABG pO2 65.0 mmHg (80.0-100.0) L 12/22/20 10:32 ABG HCO3 34.7 mmol/L (22-26) H* 12/22/20 10:32 ABG O2 Saturation 92.0 % (90-100) 12/22/20 10:32 ABG Base Excess 7.6 mmol/L (-2.0-2.0) H 12/22/20 10:32 Jose Test Pos 12/22/20 10:32 A-a Gradient 10.0 mmHg 12/22/20 10:32 FiO2 21.0 12/22/20 10:32 Blood Gas Comments Pt annel well elj cdn 12/22/20 10:32 Sodium 142 mmol/L (136-145) 12/26/20 04:00 Corrected Sodium TNP 12/26/20 04:00 Potassium 4.3 mmol/L (3.5-5.1) 12/26/20 04:00 Chloride 103 mmol/L (98-107) 12/26/20 04:00 Carbon Dioxide 33.5 mmol/L (21-32) H 12/26/20 04:00 BUN 31 mg/dL (7-18) H 12/26/20 04:00 Creatinine 1.59 mg/dL (0.70-1.30) H 12/26/20 04:00 Est GFR (MDRD) Af Amer 55 (>60) L 12/26/20 04:00 Est GFR (MDRD) Non-Af 45 (>60) L 12/26/20 04:00 Glucose 67 mg/dL (65-99) 12/26/20 04:00 POC Glucose (mg/dL) 90 mg/dL (65-99) 12/26/20 05:41 Calcium 8.7 mg/dL (8.5-10.1) 12/26/20 04:00 Corrected Calcium 9.7 mg/dL (8.5-10.1) 12/26/20 04:00 Magnesium 2.0 mg/dL (1.7-2.9) 12/26/20 04:00 Total Bilirubin 0.50 mg/dL (0.2-1.0) 12/26/20 04:00 AST 23 Units/L (15-37) 12/26/20 04:00 ALT 23 Units/L (12-78) 12/26/20 04:00 Alkaline Phosphatase 95 Units/L (46-116) 12/26/20 04:00 Troponin I 0.09 ng/mL (0-1.5) 12/22/20 08:24 B-Natriuretic Peptide 396 pg/mL (0-79) H 12/25/20 05:23 Total Protein 7.2 g/dL (6.4-8.2) 12/26/20 04:00 Albumin 2.8 g/dL (3.4-5.0) L 12/26/20 04:00 Globulin 4.4 g/dL (2.5-4.5) 12/26/20 04:00 Albumin/Globulin Ratio 0.6 Ratio (1.1-2.1) L 12/26/20 04:00 SARS-CoV-2 (PCR) Negative (NEGATIVE) 12/22/20 08:24 Influenza Type A (PCR) Negative (NEGATIVE) 12/22/20 08:24 Influenza Type B (PCR) Negative (NEGATIVE) 12/22/20 08:24 RSV (PCR) Negative (NEGATIVE) 12/22/20 08:24 Reason For Visit: PNUEMONIA,EARLY CONGESTIVE HEART FAILURE Discharge Date Discharge Date: 12/26/20 Discharge Diagnosis All Active Problems (Updated 12/23/20 @ 23:45 by Peter Justice) CHF exacerbation (Acute) Neck pain on left side (Acute) Cervical paraspinal muscle spasm (Acute) Costochondritis, acute (Acute) CAD (coronary artery disease), wiyot coronary artery (Acute) CKD (chronic kidney disease) stage 3, GFR 30-59 ml/min (Acute) Chronic pain (Acute) Degenerative arthritis (Acute) Pneumonia (Acute) Plan of Treatment: Continue with present treatment and follow up plan. Pt is to keep follow up appointment as instructed and take medications as ordered. Discharge Medications Discharge Medications: morphine Allergy (Verified 05/16/18 17:58) CONTINUE taking the following medications Tresiba FlexTouch U-100 12 unit SUBCUT HS 12/22/20 [History] Tresiba FlexTouch U-100 16 unit SUBCUT DAILY 12/22/20 [History] allopurinol 300 mg PO DAILY 12/22/20 [History] alprazolam 0.5 mg PO BID 12/22/20 [History] aspirin 81 mg PO DAILY 12/22/20 [History] clopidogrel 75 mg PO DAILY 12/22/20 [History] finasteride 5 mg PO DAILY 12/22/20 [History] hydrocodone-acetaminophen 1 tab PO BID PRN 12/22/20 [History] naproxen 500 mg PO BID PRN 12/22/20 [History] tamsulosin 0.4 mg PO BID 12/22/20 [History] metoprolol succinate 50 mg PO DAILY 12/23/20 [History] New Prescriptions ipratropium-albuterol 3 ml NEB Q4RESP PRN 30 Days #90 ml 12/26/20 [Rx] metoprolol succinate 100 mg PO DAILY 30 Days #30 tab 12/26/20 [Rx] moxifloxacin 400 mg PO Q24H 3 Days #3 tab 12/26/20 [Rx] Discharge Disposition Assessment: No acute distress noted at time of discharge. Discharge Disposition: Home Discharge Condition: Stable Discharge Plan Discharge Plan Hospital Course: Pt is a 75 year old male past medical history of CAD(Stentsx7), Hypertension, T2DM, IDA(CPAP), admitted for CHF exacerbation and pneumonia. He was treated with IV lasix and then restarted on his home lasix dose. His home metoprolol dose was also increased. Labs/imaging: Wbc 8.5, Hgb 10.9, Plt 266, Na 142, K 4.3, Creatinine 1.59, Glucose 67, Blood culture NGTD, Echo EF:56%. Pt was treated with moxifloxacin for pneumonia. Pt responded well to treatments. He did not require any home oxygen. He was discharged in stable condition. Rx Moxifloxacin, metoprolol succ 100mg, and nebulizer w/ duonebs. Pt instructed to follow up with pcp in 3-5 days. Patient Disposition: 01 HOME, SELF-CARE Condition: Stable Health Concerns: Post Hospitalization: new medications and changes needed to prevent readmission or further decline. Pt educated and given instructions on all concerns. Care Plan Goals: Problem: Infection Goal: Temperature within normal limits. Resolved infection. Instructions: Follow provided instructions. Follow up with primary physician as directed. Contact primary care physician or report to the closest Emergency Room if condition worsens. Plan of Treatment: Continue with present treatment and follow up plan. Pt is to keep follow up appointment as instructed and take medications as ordered. Assessment: No acute distress noted at time of discharge. Prescriptions: New ipratropium-albuterol 0.5 mg-3 mg(2.5 mg base)/3 mL Solution For Nebulization 3 ml NEB Q4RESP PRN (Reason: Shortness Of Breath Or Wheezing) 30 Days Qty: 90 RF: 0 moxifloxacin 400 mg Tablet 400 mg PO Q24H 3 Days Qty: 3 RF: 0 metoprolol succinate 100 mg Tablet Extended Release 24 Hr 100 mg PO DAILY 30 Days Qty: 30 RF: 0 Continued hydrocodone-acetaminophen 5-325 mg Tablet 1 tab PO BID PRNRF: 0 aspirin 81 mg Capsule,Delayed Release(Dr/Ec) 81 mg PO DAILY RF: 0 allopurinol 300 mg Tablet 300 mg PO DAILY RF: 0 finasteride 5 mg Tablet 5 mg PO DAILY RF: 0 naproxen 500 mg Tablet 500 mg PO BID PRNRF: 0 clopidogrel 75 mg tablet 75 mg PO DAILY RF: 0 alprazolam 0.5 mg tablet 0.5 mg PO BID RF: 0 tamsulosin 0.4 mg capsule 0.4 mg PO BID RF: 0 Tresiba FlexTouch U-100 100 unit/mL (3 mL) insulin pen 16 unit SUBCUT DAILY RF: 0 Tresiba FlexTouch U-100 100 unit/mL (3 mL) insulin pen 12 unit subcut HS RF: 0 metoprolol succinate 50 mg tablet extended release 24 hr 50 mg PO DAILY RF: 0 montelukast 10 mg tablet 10 mg PO DAILY RF: 0 gabapentin 100 mg capsule 100 mg PO DAILY RF: 0 furosemide [Lasix] 40 mg Tablet 40 mg PO DAILY RF: 0 cetirizine 10 mg Tablet 10 mg PO DAILY RF: 0 ranolazine [Ranexa] 500 mg Tablet Extended Release 12 Hr 500 mg PO BID RF: 0 glimepiride 4 mg tablet 4 mg PO DAILY RF: 0 atorvastatin 20 mg tablet 20 mg PO HS RF: 0 donepezil 5 mg tablet 10 mg PO HS RF: 0 famotidine 40 mg tablet 40 mg PO DAILY RF: 0 ezetimibe 10 mg tablet 10 mg PO DAILY RF: 0 tizanidine 4 mg tablet 4 mg PO Q6H PRNRF: 0 diclofenac sodium 1 % gel 1 ea TOPICAL TID RF: 0 Discontinued buspirone 10 mg Tablet 10 mg PO BID RF: 0 Orders to Discharge Patient Discharge Orders: Discharge (Routine); Ordered 12/26/20 Ordered By: Peter Justice Follow ups/Referrals Follow ups/Referrals: ELLIS JONES [Primary Care Provider] - 01/02/21 11:00 am Instructions Instructions: Type 2 Diabetes Mellitus, Diagnosis, Adult, Incentive Spirometer, Upper Respiratory Infection, Adult, Tmgw-ys-Mfda, Antibiotic Medicine, Adult, Yvoz-af-Pmpi, Type 2 Diabetes Mellitus, Self Care, Adult, Kdik-gx-Uvya, How to Use a Nebulizer, Adult, Heart Failure, Ezkp-ln-Ffdg, You've Been Prescribed an Antibiotic in the Hospital for an Infection - CDC (06/2017), Community-Acquired Pneumonia, Adult, Jpyy-ld-Ejjr Stand Alone Forms: Excuse From Work or School, Precautions for COVID19, [facility], Patient Portal, Social Distancing
[2020-12-26 12:19] VITALS: BP 142/64
[2020-12-26] MEDS: AVELOX TAB 400 MG PO SCH (12:41)
[2020-12-26] MEDS ORDERED: LOVENOX INJ 40 MG SYR SC SCH (13:00)
== END 2020-12-26 13:40 | disposition home or self-care (01) ==
LOC: MED/SURG 08:09 → ER 08:09 → MED/SURG 12:19
PROVIDERS: ADMIT Family Medicine; ATTEND Family Medicine
DX: I50.9 Heart failure, unspecified; I25.10 Atherosclerotic heart disease of native coronary artery without angina pectoris; I11.0 Hypertensive heart disease with heart failure; J18.8 Other pneumonia, unspecified organism; E78.2 Mixed hyperlipidemia; G47.33 Obstructive sleep apnea (adult) (pediatric); R06.02 Shortness of breath; Z20.822 Contact with and (suspected) exposure to COVID-19; R94.31 Abnormal electrocardiogram [ECG] [EKG]; E11.65 Type 2 diabetes mellitus with hyperglycemia

== ENCOUNTER 2022-10-03 11:35 | Inpatient (IN) ==
[2022-10-03] MEDS ORDERED: NovoLIN R (or HumuLIN R) SUBCUT PRN (15:12)
[2022-10-03] MEDS ORDERED: CONSULT PHARMACY - POTASSIUM & MAGNESIUM XX SCH (16:00)
[2022-10-03 16:13] LABS: EOSINOPHILS # (AUTO) 0.2 x10^3/uL (0.0-0.2); LYMPHOCYTES # (AUTO) 0.9 X10^3/uL (1.3-2.9); MEAN CORPUSCULAR HGB CONC 32.3 g/dL (33.0-35.0); MEAN CORPUSCULAR VOLUME 76.9 fL (80.0-100.0); MEAN PLATELET VOLUME 7.7 fL (7.4-11.0); MONOCYTES # (AUTO) 0.4 x10^3/uL (0.3-0.8); NEUTROPHILS # (AUTO) 4.8 x10^3/uL (2.2-4.8); RED CELL DISTRIBUTION WIDTH 21.6 % (11.6-16.5); WHITE BLOOD COUNT 6.3 X10^3/uL (3.6-10.0)
[2022-10-03 16:18] LABS: BASOPHILS % (AUTO) 0.5 % (0.2-1.0); EOSINOPHILS % (AUTO) 2.4 % (0.9-2.9); HEMATOCRIT 32.9 % (42.0-54.0); HEMOGLOBIN 10.6 g/dL (13.5-18.0); LYMPHOCYTES % (AUTO) 14.3 % (21.0-51.0); MEAN CORPUSCULAR HEMOGLOBIN 24.8 pg (27.0-34.0); MONOCYTES % (AUTO) 6.6 % (0.0-13.0); NEUTROPHILS % (AUTO) 76.2 % (42.0-75.0); PLATELET COUNT 217 X10^3/uL (150.0-450.0); RED BLOOD COUNT 4.28 X10^6/uL (4.7-6.0)
[2022-10-03 16:26] LABS: ALBUMIN 3.1 g/dL (3.4-5.0); CALCIUM 8.2 mg/dL (8.5-10.1); CARBON DIOXIDE 30.5 mmol/L (21-32); COR CA(FOR HYPOALB) 8.9 mg/dL (8.5-10.1); CREATININE 1.91 mg/dL (0.70-1.30); POTASSIUM 4.1 mmol/L (3.5-5.1); TOTAL PROTEIN 6.4 g/dL (6.4-8.2)
[2022-10-03 16:47] LABS: ANISOCYTOSIS 1+; HYPOCHROMASIA SLIGHT; MICROCYTOSIS SLIGHT; PLATELET MORPHOLOGY COMMENT NORMAL (NORMAL)
[2022-10-03] MEDS: NS 1,000 ML IV 1,000 ML IV SCH (17:08)
[2022-10-03] MEDS: ZOSYN VIAL 3.375 GRAMS 3.375 G in NS 100 ML IV 100 ML IV SCH ×2 (17:09→21:23)
[2022-10-03 17:28] VITALS: BMI 34.9
[2022-10-03] MEDS ORDERED: ZANAFLEX PO PRN (19:18)
[2022-10-03] MEDS ORDERED: PULMICORT NEB TX 0.5 MG NEB ONE (19:29)
[2022-10-03] MEDS: PULMICORT NEB TX 0.5 MG NEB SCH (20:10)
[2022-10-03] MEDS: RANEXA PO SCH (21:24)
[2022-10-03] MEDS: RESTORIL CAP 15 MG PO SCH (21:24)
[2022-10-03] MEDS: SINGULAIR TAB 10 MG PO SCH (21:24)
[2022-10-03] MEDS: LIPITOR TAB 20 MG PO SCH (21:24)
[2022-10-04 05:11] LABS: BASOPHILS % (AUTO) 0.6 % (0.2-1.0); EOSINOPHILS # (AUTO) 0.2 x10^3/uL (0.0-0.2); HEMATOCRIT 32.8 % (42.0-54.0); HEMOGLOBIN 10.8 g/dL (13.5-18.0); LYMPHOCYTES # (AUTO) 1.3 X10^3/uL (1.3-2.9); LYMPHOCYTES % (AUTO) 21.1 % (21.0-51.0); MEAN CORPUSCULAR VOLUME 75.8 fL (80.0-100.0); MEAN PLATELET VOLUME 7.6 fL (7.4-11.0); MONOCYTES # (AUTO) 0.6 x10^3/uL (0.3-0.8); MONOCYTES % (AUTO) 9.1 % (0.0-13.0); NEUTROPHILS # (AUTO) 4.1 x10^3/uL (2.2-4.8); NEUTROPHILS % (AUTO) 66.2 % (42.0-75.0); PLATELET COUNT 210 X10^3/uL (150.0-450.0); RED BLOOD COUNT 4.33 X10^6/uL (4.7-6.0); RED CELL DISTRIBUTION WIDTH 21.6 % (11.6-16.5); WHITE BLOOD COUNT 6.2 X10^3/uL (3.6-10.0)
[2022-10-04] MEDS: NS 1,000 ML IV 1,000 ML IV SCH ×2 (05:15→18:13)
[2022-10-04 05:31] LABS: ALANINE AMINOTRANSFERASE 37 Units/L (12-78); ALBUMIN 2.9 g/dL (3.4-5.0); ALKALINE PHOSPHATASE 83 Units/L (46-116); ASPARTATE AMINO TRANSFERASE 32 Units/L (15-37); BLOOD UREA NITROGEN 49 mg/dL (7-18); CALCIUM 8.2 mg/dL (8.5-10.1); CARBON DIOXIDE 27.3 mmol/L (21-32); CHLORIDE 110 mmol/L (98-107); COR CA(FOR HYPOALB) 9.1 mg/dL (8.5-10.1); CREATININE 1.58 mg/dL (0.70-1.30); GLUCOSE 97 mg/dL (65-99); POTASSIUM 4.1 mmol/L (3.5-5.1); SODIUM 147 mmol/L (136-145); TOTAL PROTEIN 6.1 g/dL (6.4-8.2); eGFR NON BLACK RACES 45 (>60)
[2022-10-04] MEDS: ZOSYN VIAL 3.375 GRAMS 3.375 G in NS 100 ML IV 100 ML IV SCH ×3 (05:35→22:15)
[2022-10-04 05:53] LABS: ANISOCYTOSIS 1+; HYPOCHROMASIA SLIGHT; MICROCYTOSIS SLIGHT; PLATELET MORPHOLOGY COMMENT NORMAL (NORMAL)
[2022-10-04] MEDS: PULMICORT NEB TX 0.5 MG NEB SCH ×2 (08:22→21:00)
--- NOTE | 2022-10-04 08:39 | VAS ---
HISTORYBilateral lower extremity cellulitis, redness, and leaking sores.STUDYLOWER EXT VENOUS, BILATERALCOMPARISON[None.]TECHNIQUEDoppl er ultrasound of the [bilateral lower] extremity deep venous system.FINDINGSNegative for DVT in the [bilateral lower] extremity deep venous system.IMPRESSION[Negative for DVT in the visualized veins.]Electronically signed by: Anastacio Amado (Oct 04, 2022 08:38:18)
[2022-10-04] MEDS: ARICEPT TAB 10 MG PO SCH (09:40)
[2022-10-04] MEDS: LOVENOX INJ 40 MG SYR SC SCH (09:40)
[2022-10-04] MEDS: ASPIRIN 81 MG CHEWTAB PO SCH (09:40)
[2022-10-04] MEDS: RANEXA PO SCH ×2 (09:41→20:50)
[2022-10-04] MEDS: PROSCAR PO SCH (09:41)
[2022-10-04] MEDS: PLAVIX PO SCH (09:41)
[2022-10-04] MEDS: PEPCID TAB 40 MG PO SCH (09:41)
[2022-10-04] MEDS: NEURONTIN CAP 300 MG PO SCH (09:41)
[2022-10-04] MEDS: ZyrTEC TAB 10 MG PO SCH (09:42)
[2022-10-04] MEDS: ZETIA TAB 10 MG PO SCH (09:42)
[2022-10-04] MEDS: PATIENT'S HOME MEDICATION (Vibegron [Gemtesa] 75 mg tablet) PO SCH (11:40)
[2022-10-04] MEDS: LASIX PO SCH ×2 (11:40→20:50)
[2022-10-04] MEDS: COLACE CAP 100 MG PO SCH (11:40)
--- NOTE | 2022-10-04 14:15 | DR.UPDATE ---
H&P Update Prescription drug monitoring program results: PDMP was not reviewed H&P Reviewed: Yes Any changes to H&P?: Yes Changes noted:: PRESENTED TO THE OFFICE ON 10/03 WITH COMPLAINTS OF NON-HEALING WOUNDS, REDNESS, SWELLING, AND PAIN TO BILATERAL LOWER EXTREMITIES. OVER THE PAST MONTH, HE HAS TAKEN CEFDINIR 300MG PO BID X 21 DAYS AND DOXYCYCLINE 100MG BID X 10 DAYS. HE HAS BEEN TAKING LASIX 40MG BID FOR SWELLING. HE DENIES IMPROVEMENT IN SYMPTOMS DESPITE COMPLIANCE WITH MEDICATIONS. ADDITIONALLY, PATIENT REPORTS THAT HIS BLOOD PRESSURE HAS BEEN LOW AND THAT HE HAS HAD TO HOLD HIS BLOOD PRESSURE MEDICATIONS FOR THE PAST FEW DAYS. HIS PMH INCLUDES: CAD, HTN, GERD, URINARY FREQUENCY, ANXIETY, DEPRESSION, LEFT KNEE, HIP, AND SHOULDER SURGERY. EXAMINATION REVEALED MULTIPLE SCABBED AND OPEN WOUNDS TO THE RIGHT LOWER LEG. THERE WERE MULTIPLE SCABBED WOUNDS TO THE LEFT LOWER LEG. BILATERAL LEGS WERE NOTED WITH 1+ PITTING EDEMA AND ERYTHEMA. LEGS WERE WARM TO THE TOUCH. DECISION WAS MADE TO ADMIT PATIENT TO THE HOSPITAL OBSERVATION STATUS FOR FURTHER EVALUATION AND TREATMENT. ON ARRIVAL TO THE HOSPITAL, HER VITALS WERE: 98.1-98-20-97%-111/59. LABS WERE OBTAINED. LABS WERE OBTAINED. WBC 6.3, RBC 4.28, HGB 10.6, HCT 32.9, PLT COUNT 217, SODIUM 145, POTASSIUM 4.1, CHLORIDE 109, BUN 55, CREATININE 1.91, GLUCOSE 213, CALCIUM 8.2, TOTAL BILI 0.40, AST 38, ALT 43, ALK PHOS 95, TOTAL PROTEIN 6.4, ALBUMIN 3.1. BLOOD CULTURES WERE SET UP. BILATERAL LOWER EXTREMITY VENOUS DOPPLER OBTAINED AND WAS NEGATIVE FOR ACUTE ABNORMALITY. HE WAS STARTED ON NORMAL SALINE AT 80 ML/HR, ZOSYN 3.375G IV TID, OTBS ACHS, HUMULIN R SLIDING SCALE, LOVENOX 40MG SC DAILY, AND HIS HOME MEDICATIONS WERE RESUMED. HOME MEDS INCLUDE: XANAX, ECOTRIN, LIPITOR, ZYRTEC, PLAVIX, ARICEPT, ZETIA, PEPCID, PROSCAR, LASIX, NEURONTIN, SINGULAIR, RANEXA, RESTORIL, ZANAFLEX, JARDIANCE, AND GEMTESA. WE WILL ORDER WOUND CARE WITH DAILY WET TO DRY DRESSINGS. OTHERWISE, WE WILL FOLLOW UP WITH AM LABS AND CONTINUE TO MONITOR. TIME SPENT ON CLINICAL ASSESSMENT, REVIEWING LABS AND IMAGING, DECISION MAKING, AND DOCUMENTATION GREATER THAN 75 MINUTES. Patient was examined?: Yes
[2022-10-04] MEDS: SINGULAIR TAB 10 MG PO SCH (20:50)
[2022-10-04] MEDS: RESTORIL CAP 15 MG PO SCH (20:50)
[2022-10-04] MEDS: LIPITOR TAB 20 MG PO SCH (20:50)
[2022-10-04] MEDS: XANAX PO PRN (20:51)
[2022-10-05] MEDS: ZOSYN VIAL 3.375 GRAMS 3.375 G in NS 100 ML IV 100 ML IV SCH ×3 (05:43→22:05)
[2022-10-05 06:30] LABS: BASOPHILS % (AUTO) 0.6 % (0.2-1.0); EOSINOPHILS # (AUTO) 0.2 x10^3/uL (0.0-0.2); EOSINOPHILS % (AUTO) 3.7 % (0.9-2.9); HEMATOCRIT 31.9 % (42.0-54.0); HEMOGLOBIN 10.3 g/dL (13.5-18.0); LYMPHOCYTES # (AUTO) 1.4 X10^3/uL (1.3-2.9); LYMPHOCYTES % (AUTO) 21.3 % (21.0-51.0); MEAN CORPUSCULAR HEMOGLOBIN 24.7 pg (27.0-34.0); MEAN CORPUSCULAR HGB CONC 32.4 g/dL (33.0-35.0); MEAN CORPUSCULAR VOLUME 76.4 fL (80.0-100.0); MEAN PLATELET VOLUME 7.8 fL (7.4-11.0); MONOCYTES # (AUTO) 0.6 x10^3/uL (0.3-0.8); MONOCYTES % (AUTO) 9.8 % (0.0-13.0); NEUTROPHILS # (AUTO) 4.1 x10^3/uL (2.2-4.8); NEUTROPHILS % (AUTO) 64.6 % (42.0-75.0); PLATELET COUNT 207 X10^3/uL (150.0-450.0); RED BLOOD COUNT 4.18 X10^6/uL (4.7-6.0); RED CELL DISTRIBUTION WIDTH 21.6 % (11.6-16.5); WHITE BLOOD COUNT 6.4 X10^3/uL (3.6-10.0)
[2022-10-05] MEDS: NS 1,000 ML IV 1,000 ML IV SCH ×2 (06:30→22:00)
[2022-10-05 06:45] LABS: ALBUMIN 2.8 g/dL (3.4-5.0); CARBON DIOXIDE 29.7 mmol/L (21-32); CREATININE 1.48 mg/dL (0.70-1.30); POTASSIUM 3.8 mmol/L (3.5-5.1)
[2022-10-05 07:42] LABS: ANISOCYTOSIS 1+; PLATELET MORPHOLOGY COMMENT NORMAL (NORMAL)
[2022-10-05 07:43] LABS: HYPOCHROMASIA SLIGHT; MICROCYTOSIS SLIGHT; OVALOCYTES SLIGHT
[2022-10-05] MEDS: RANEXA PO SCH ×2 (08:52→22:03)
[2022-10-05] MEDS: ASPIRIN 81 MG CHEWTAB PO SCH (08:52)
[2022-10-05] MEDS: ZETIA TAB 10 MG PO SCH (08:52)
[2022-10-05] MEDS: LOVENOX INJ 40 MG SYR SC SCH (08:52)
[2022-10-05] MEDS: PEPCID TAB 40 MG PO SCH (08:53)
[2022-10-05] MEDS: LASIX PO SCH ×2 (08:53→22:04)
[2022-10-05] MEDS: XANAX PO PRN ×2 (08:53→22:13)
[2022-10-05] MEDS: COLACE CAP 100 MG PO SCH (08:53)
[2022-10-05] MEDS: PLAVIX PO SCH (08:53)
[2022-10-05] MEDS: PROSCAR PO SCH (08:53)
[2022-10-05] MEDS: NEURONTIN CAP 300 MG PO SCH ×3 (08:53→22:14)
[2022-10-05] MEDS: ARICEPT TAB 10 MG PO SCH ×4 (08:53→22:03)
[2022-10-05] MEDS: ZyrTEC TAB 10 MG PO SCH (08:53)
[2022-10-05] MEDS: PULMICORT NEB TX 0.5 MG NEB SCH ×2 (09:20→21:00)
[2022-10-05] MEDS: PATIENT'S HOME MEDICATION (Vibegron [Gemtesa] 75 mg tablet) PO SCH (10:28)
[2022-10-05] MEDS: RESTORIL CAP 15 MG PO SCH (22:02)
[2022-10-05] MEDS: SINGULAIR TAB 10 MG PO SCH (22:02)
[2022-10-05] MEDS: LIPITOR TAB 20 MG PO SCH (22:15)
[2022-10-06] MEDS: ZOSYN VIAL 3.375 GRAMS 3.375 G in NS 100 ML IV 100 ML IV SCH ×3 (05:33→21:16)
[2022-10-06 06:42] LABS: BASOPHILS % (AUTO) 0.5 % (0.2-1.0); EOSINOPHILS # (AUTO) 0.3 x10^3/uL (0.0-0.2); HEMOGLOBIN 10.5 g/dL (13.5-18.0); LYMPHOCYTES # (AUTO) 1.6 X10^3/uL (1.3-2.9); LYMPHOCYTES % (AUTO) 23.3 % (21.0-51.0); MEAN CORPUSCULAR HEMOGLOBIN 24.5 pg (27.0-34.0); MEAN CORPUSCULAR HGB CONC 31.8 g/dL (33.0-35.0); MEAN CORPUSCULAR VOLUME 77.2 fL (80.0-100.0); MEAN PLATELET VOLUME 7.9 fL (7.4-11.0); MONOCYTES # (AUTO) 0.7 x10^3/uL (0.3-0.8); MONOCYTES % (AUTO) 10.2 % (0.0-13.0); NEUTROPHILS # (AUTO) 4.3 x10^3/uL (2.2-4.8); PLATELET COUNT 217 X10^3/uL (150.0-450.0); RED BLOOD COUNT 4.28 X10^6/uL (4.7-6.0); RED CELL DISTRIBUTION WIDTH 21.6 % (11.6-16.5)
[2022-10-06 07:09] LABS: ALANINE AMINOTRANSFERASE 31 Units/L (12-78); ALBUMIN 2.9 g/dL (3.4-5.0); ALKALINE PHOSPHATASE 77 Units/L (46-116); ASPARTATE AMINO TRANSFERASE 28 Units/L (15-37); BLOOD UREA NITROGEN 34 mg/dL (7-18); CALCIUM 8.2 mg/dL (8.5-10.1); CARBON DIOXIDE 30.1 mmol/L (21-32); CHLORIDE 107 mmol/L (98-107); COR CA(FOR HYPOALB) 9.1 mg/dL (8.5-10.1); GLUCOSE 97 mg/dL (65-99); POTASSIUM 3.9 mmol/L (3.5-5.1); SODIUM 146 mmol/L (136-145); TOTAL PROTEIN 6.1 g/dL (6.4-8.2); eGFR NON BLACK RACES 45 (>60)
[2022-10-06 07:32] LABS: ANISOCYTOSIS 1+; HYPOCHROMASIA SLIGHT; MICROCYTOSIS SLIGHT; PLATELET MORPHOLOGY COMMENT NORMAL (NORMAL)
[2022-10-06 07:39] LABS: TARGET CELLS SLIGHT
[2022-10-06] MEDS: PULMICORT NEB TX 0.5 MG NEB SCH ×2 (09:18→21:00)
[2022-10-06] MEDS: PATIENT'S HOME MEDICATION (Vibegron [Gemtesa] 75 mg tablet) PO SCH (09:18)
[2022-10-06] MEDS: PROSCAR PO SCH (09:24)
[2022-10-06] MEDS: LASIX PO SCH ×2 (09:24→21:12)
[2022-10-06] MEDS: LOVENOX INJ 40 MG SYR SC SCH (09:24)
[2022-10-06] MEDS: RANEXA PO SCH ×2 (09:24→21:12)
[2022-10-06] MEDS: PLAVIX PO SCH (09:24)
[2022-10-06] MEDS: ZETIA TAB 10 MG PO SCH (09:24)
[2022-10-06] MEDS: ZyrTEC TAB 10 MG PO SCH (09:24)
[2022-10-06] MEDS: PEPCID TAB 40 MG PO SCH (09:24)
[2022-10-06] MEDS: ASPIRIN 81 MG CHEWTAB PO SCH (09:24)
[2022-10-06] MEDS: COLACE CAP 100 MG PO SCH (09:24)
[2022-10-06] MEDS: NS 1,000 ML IV 1,000 ML IV SCH ×2 (09:25→21:16)
[2022-10-06] MEDS: NEURONTIN CAP 300 MG PO SCH (21:11)
[2022-10-06] MEDS: SINGULAIR TAB 10 MG PO SCH (21:12)
[2022-10-06] MEDS: RESTORIL CAP 15 MG PO SCH (21:12)
[2022-10-06] MEDS: ARICEPT TAB 10 MG PO SCH (21:12)
[2022-10-06] MEDS: LIPITOR TAB 20 MG PO SCH (21:12)
[2022-10-06] MEDS: XANAX PO PRN (21:14)
[2022-10-07] MEDS: ZOSYN VIAL 3.375 GRAMS 3.375 G in NS 100 ML IV 100 ML IV SCH ×3 (05:32→21:04)
[2022-10-07] MEDS: NS 1,000 ML IV 1,000 ML IV SCH ×4 (05:32→20:38)
[2022-10-07 06:20] LABS: BASOPHILS % (AUTO) 0.5 % (0.2-1.0); EOSINOPHILS # (AUTO) 0.3 x10^3/uL (0.0-0.2); HEMATOCRIT 32.2 % (42.0-54.0); HEMOGLOBIN 10.5 g/dL (13.5-18.0); LYMPHOCYTES # (AUTO) 1.5 X10^3/uL (1.3-2.9); MEAN CORPUSCULAR HGB CONC 32.5 g/dL (33.0-35.0); MEAN CORPUSCULAR VOLUME 76.8 fL (80.0-100.0); MEAN PLATELET VOLUME 7.7 fL (7.4-11.0); MONOCYTES # (AUTO) 0.7 x10^3/uL (0.3-0.8); MONOCYTES % (AUTO) 10.2 % (0.0-13.0); NEUTROPHILS # (AUTO) 4.4 x10^3/uL (2.2-4.8); NEUTROPHILS % (AUTO) 63.3 % (42.0-75.0); PLATELET COUNT 217 X10^3/uL (150.0-450.0); RED CELL DISTRIBUTION WIDTH 21.7 % (11.6-16.5); WHITE BLOOD COUNT 6.9 X10^3/uL (3.6-10.0)
[2022-10-07 06:27] LABS: ALBUMIN 2.7 g/dL (3.4-5.0); CALCIUM 8.1 mg/dL (8.5-10.1); COR CA(FOR HYPOALB) 9.1 mg/dL (8.5-10.1); CREATININE 1.66 mg/dL (0.70-1.30); POTASSIUM 3.5 mmol/L (3.5-5.1); TOTAL PROTEIN 5.8 g/dL (6.4-8.2)
[2022-10-07 06:57] LABS: PLATELET MORPHOLOGY COMMENT NORMAL (NORMAL)
[2022-10-07 06:59] LABS: ANISOCYTOSIS 1+; HYPOCHROMASIA SLIGHT; MICROCYTOSIS SLIGHT
[2022-10-07] MEDS ORDERED: CONSULT PHARMACY - POTASSIUM & MAGNESIUM XX SCH (07:00)
[2022-10-07] MEDS ORDERED: K-DUR TAB 20 MEQ PO SCH (09:00)
[2022-10-07] MEDS: PULMICORT NEB TX 0.5 MG NEB SCH ×2 (09:12→20:48)
[2022-10-07] MEDS: COLACE CAP 100 MG PO SCH (09:21)
[2022-10-07] MEDS: ASPIRIN 81 MG CHEWTAB PO SCH (09:22)
[2022-10-07] MEDS: RANEXA PO SCH ×2 (09:22→20:41)
[2022-10-07] MEDS: XANAX PO PRN ×2 (09:22→20:40)
[2022-10-07] MEDS: PLAVIX PO SCH (09:23)
[2022-10-07] MEDS: PEPCID TAB 40 MG PO SCH (09:23)
[2022-10-07] MEDS: ZETIA TAB 10 MG PO SCH (09:23)
[2022-10-07] MEDS: ZyrTEC TAB 10 MG PO SCH (09:23)
[2022-10-07] MEDS: LASIX PO SCH ×2 (09:23→20:40)
[2022-10-07] MEDS: PROSCAR PO SCH (09:23)
[2022-10-07] MEDS: LOVENOX INJ 40 MG SYR SC SCH (09:24)
[2022-10-07] MEDS: PATIENT'S HOME MEDICATION (Vibegron [Gemtesa] 75 mg tablet) PO SCH (09:31)
[2022-10-07 09:43] VITALS: RESP 18
--- NOTE | 2022-10-07 10:37 | PCM.PROG ---
Progress Note Progress Note for Day of Date of Exam: 10/06/22 Subjective Subjective: PT IS A 77 YEAR OLD MALE ADMITTED FOR NON-HEALING WOUNDS AND CELLULITIS OF BILATERAL LOWER EXTREMITIES. HIS PMH INCLUDES: CAD, HTN, GERD, URINARY FREQUENCY, ANXIETY, DEPRESSION, LEFT KNEE, HIP, AND SHOULDER SURGERY. THIS MORNING HE IS SITTING UP IN BED EATING BREAKFAST. NO ACUTE EVENTS OVERN IGHT. LABS/IMAGING: WBC 7, HGB 10.5, PLT 217, NA 146, K 3.9, CREATININE 1.60, GLUCOSE 97. BLOOD CULTURES ON GROWTH TO DATE. BILATERAL LOWER EXTREMITY VENOUS DOPPLER OBTAINED AND WAS NEGATIVE FOR ACUTE ABNORMALITY. HE IS CURRENTLY RECEIVING NORMAL SALINE AT 80 ML/HR, ZOSYN 3.375G IV TID, OTBS ACHS, HUMULIN R SLIDING SCALE, LOVENOX 40MG SC DAILY, AND HIS HOME MEDICATIONS WERE RESUMED. HOME MEDS INCLUDE: XANAX, ECOTRIN, LIPITOR, ZYRTEC, PLAVIX, ARICEPT, ZETIA, PEPCID, PROSCAR, LASIX, NEURONTIN, SINGULAIR, RANEXA, RESTORIL, ZANAFLEX, JARDIANCE, AND GEMTESA. WE WILL CONTINUE WITH CURRENT TREATMENT PLAN AND WOUND CARE WITH DAILY WET TO DRY DRESSINGS. OTHERWISE, WE WILL FOLLOW UP WITH AM LABS AND CONTINUE TO MONITOR. Past Medical Family Social History Allergies: Allergies No Known Drug Allergies Allergy (Verified 12/20/21 13:51) Review of Systems ROS changes noted: SEE HPI Vital Signs and I&O's Vital Signs: Vital Signs Temperature 98.0 F Temperature 97.8 F Pulse Rate [Bilateral Radial] 86 Pulse Rate [Bilateral Radial] 94 Respiratory Rate 18 Respiratory Rate 20 Blood Pressure [Left Arm] 133/60 Blood Pressure [Left Arm] 141/73 O2 Sat by Pulse Oximetry 93 O2 Sat by Pulse Oximetry 96 Intake and Output: Intake & Output 10/04/22 10/05/22 10/06/22 10/07/22 23:59 23:59 23:59 23:59 Intake Total 1330 / 1330 2169 / 2169 2585 / 2585 905 / 905 Output Total 400 / 400 2440 / 2440 3900 / 3900 0 / 0 Balance 930 / 930 -271 / -271 -1315 / -1315 905 / 905 Physical Exam Oriented: Normal Eyes: Normal Nose: Normal Respiratory: Normal Cardiovascular: Normal : Normal Auscultation: Bowel Sounds: Normal Tenderness: Normal Skin: Wound (BILATERAL LOWER EXTREMITIES) Musculoskeletal: Normal Speech Pattern: Clear and Appropriate Laboratory and Diagnostics Result Diagrams: 10/07/22 04:50 10/07/22 04:50 Labs: 10/03/22 16:00 Blood Blood Culture - Preliminary 10/03/22 15:38 Blood Blood Culture - Preliminary Laboratory WBC 6.9 X10^3/uL (3.6-10.0) 10/07/22 04:50 RBC 4.20 X10^6/uL (4.7-6.0) L 10/07/22 04:50 Hgb 10.5 g/dL (13.5-18.0) L 10/07/22 04:50 Hct 32.2 % (42.0-54.0) L 10/07/22 04:50 MCV 76.8 fL (80.0-100.0) L 10/07/22 04:50 MCH 25.0 pg (27.0-34.0) L 10/07/22 04:50 MCHC 32.5 g/dL (33.0-35.0) L 10/07/22 04:50 RDW 21.7 % (11.6-16.5) H 10/07/22 04:50 Plt Count 217 X10^3/uL (150.0-450.0) 10/07/22 04:50 Plt Count Comment Adequate (ADEQUATE) 10/07/22 04:50 MPV 7.7 fL (7.4-11.0) 10/07/22 04:50 Neut % (Auto) 63.3 % (42.0-75.0) 10/07/22 04:50 Lymph % (Auto) 22.0 % (21.0-51.0) 10/07/22 04:50 Bee % (Auto) 10.2 % (0.0-13.0) 10/07/22 04:50 Eos % (Auto) 4.0 % (0.9-2.9) H 10/07/22 04:50 Baso % (Auto) 0.5 % (0.2-1.0) 10/07/22 04:50 Neut # (Auto) 4.4 x10^3/uL (2.2-4.8) 10/07/22 04:50 Lymph # (Auto) 1.5 X10^3/uL (1.3-2.9) 10/07/22 04:50 Bee # (Auto) 0.7 x10^3/uL (0.3-0.8) 10/07/22 04:50 Eos # (Auto) 0.3 x10^3/uL (0.0-0.2) H 10/07/22 04:50 Baso # (Auto) 0.0 X10^3/uL (0.0-0.1) 10/07/22 04:50 Absolute Nucleated RBC 0.3 /100WBC 10/07/22 04:50 Plt Morphology Comment Normal (NORMAL) 10/07/22 04:50 RBC Morphology Abnormal (NORMAL) 10/07/22 04:50 Hypochromasia Slight A 10/07/22 04:50 Anisocytosis 1+ A 10/07/22 04:50 Microcytosis Slight A 10/07/22 04:50 Target Cells Slight A 10/06/22 04:48 Ovalocytes Slight A 10/05/22 05:11 Sodium 147 mmol/L (136-145) H 10/07/22 04:50 Corrected Sodium 148 mmol/L (136-145) H 10/07/22 04:50 Potassium 3.5 mmol/L (3.5-5.1) 10/07/22 04:50 Chloride 107 mmol/L (98-107) 10/07/22 04:50 Carbon Dioxide 32.0 mmol/L (21-32) 10/07/22 04:50 BUN 28 mg/dL (7-18) H 10/07/22 04:50 Creatinine 1.66 mg/dL (0.70-1.30) H 10/07/22 04:50 Est GFR (MDRD) Af Amer 52 (>60) L 10/07/22 04:50 Est GFR (MDRD) Non-Af 43 (>60) L 10/07/22 04:50 Glucose 123 mg/dL (65-99) H 10/07/22 04:50 POC Glucose (mg/dL) 114 mg/dL (65-99) H 10/07/22 05:36 Calcium 8.1 mg/dL (8.5-10.1) L 10/07/22 04:50 Corrected Calcium 9.1 mg/dL (8.5-10.1) 10/07/22 04:50 Magnesium 1.7 mg/dL (2.0-2.9) L 10/07/22 04:50 Total Bilirubin 0.50 mg/dL (0.2-1.0) 10/07/22 04:50 AST 26 Units/L (15-37) 10/07/22 04:50 ALT 28 Units/L (12-78) 10/07/22 04:50 Alkaline Phosphatase 75 Units/L (46-116) 10/07/22 04:50 Total Protein 5.8 g/dL (6.4-8.2) L 10/07/22 04:50 Albumin 2.7 g/dL (3.4-5.0) L 10/07/22 04:50 Globulin 3.1 g/dL (2.5-4.5) 10/07/22 04:50 Albumin/Globulin Ratio 0.9 Ratio (1.1-2.1) L 10/07/22 04:50 Plan (1) Wound of lower extremity: Status: Acute Narrative Support Text: CONTINUE IV ANTIBIOTICS.
[2022-10-07] MEDS ORDERED: K-DUR TAB 20 MEQ PO ONE (13:19)
[2022-10-07] MEDS: NORCO 7.5/325 MG TAB PO PRN (13:45)
[2022-10-07] MEDS: RESTORIL CAP 15 MG PO SCH (20:40)
[2022-10-07] MEDS: ARICEPT TAB 10 MG PO SCH (20:40)
[2022-10-07] MEDS: NEURONTIN CAP 300 MG PO SCH (20:41)
[2022-10-07] MEDS: LIPITOR TAB 20 MG PO SCH (20:41)
[2022-10-07] MEDS: SINGULAIR TAB 10 MG PO SCH (20:41)
[2022-10-08] MEDS: ZOSYN VIAL 3.375 GRAMS 3.375 G in NS 100 ML IV 100 ML IV SCH ×2 (05:55→14:52)
[2022-10-08 06:26] LABS: BASOPHILS % (AUTO) 0.8 % (0.2-1.0); EOSINOPHILS # (AUTO) 0.3 x10^3/uL (0.0-0.2); EOSINOPHILS % (AUTO) 4.5 % (0.9-2.9); HEMOGLOBIN 9.9 g/dL (13.5-18.0); LYMPHOCYTES # (AUTO) 1.3 X10^3/uL (1.3-2.9); MEAN CORPUSCULAR HEMOGLOBIN 24.9 pg (27.0-34.0); MEAN CORPUSCULAR HGB CONC 31.9 g/dL (33.0-35.0); MEAN CORPUSCULAR VOLUME 77.9 fL (80.0-100.0); MEAN PLATELET VOLUME 7.5 fL (7.4-11.0); MONOCYTES # (AUTO) 0.7 x10^3/uL (0.3-0.8); NEUTROPHILS % (AUTO) 62.7 % (42.0-75.0); PLATELET COUNT 205 X10^3/uL (150.0-450.0); RED BLOOD COUNT 3.98 X10^6/uL (4.7-6.0); RED CELL DISTRIBUTION WIDTH 21.8 % (11.6-16.5); WHITE BLOOD COUNT 6.4 X10^3/uL (3.6-10.0)
[2022-10-08 06:54] LABS: ALANINE AMINOTRANSFERASE 25 Units/L (12-78); ALBUMIN 2.5 g/dL (3.4-5.0); ALKALINE PHOSPHATASE 69 Units/L (46-116); ASPARTATE AMINO TRANSFERASE 24 Units/L (15-37); BLOOD UREA NITROGEN 30 mg/dL (7-18); CARBON DIOXIDE 30.9 mmol/L (21-32); CHLORIDE 107 mmol/L (98-107); COR CA(FOR HYPOALB) 9.2 mg/dL (8.5-10.1); CREATININE 1.65 mg/dL (0.70-1.30); GLUCOSE 96 mg/dL (65-99); MAGNESIUM 1.7 mg/dL (2.0-2.9); POTASSIUM 3.6 mmol/L (3.5-5.1); SODIUM 147 mmol/L (136-145); TOTAL PROTEIN 5.5 g/dL (6.4-8.2); eGFR NON BLACK RACES 43 (>60)
[2022-10-08 07:19] LABS: ANISOCYTOSIS 1+; HYPOCHROMASIA SLIGHT; MICROCYTOSIS SLIGHT; PLATELET MORPHOLOGY COMMENT NORMAL (NORMAL); TARGET CELLS SLIGHT
--- NOTE | 2022-10-08 07:53 | PCM.PROG ---
Progress Note Progress Note for Day of Date of Exam: 10/07/22 Subjective Subjective: PT IS A 77 YEAR OLD MALE ADMITTED FOR NON-HEALING WOUNDS AND CELLULITIS OF BILATERAL LOWER EXTREMITIES. HIS PMH INCLUDES: CAD, HTN, GERD, URINARY FREQUENCY, ANXIETY, DEPRESSION, LEFT KNEE, HIP, AND SHOULDER SURGERY. THIS MORNING HE IS SITTING UP ON THE SIDE OF THE BED. NO ACUTE EVENTS OVERNIGHT. LABS/IMAGING: WBC 6.9, HGB 10.5, PLT 217, NA 147, K 3.5, CREATININE 1.66, GLUCOSE 123. BLOOD CULTURES ON GROWTH TO DATE. BILATERAL LOWER EXTREMITY VENOUS DOPPLER OBTAINED AND WAS NEGATIVE FOR ACUTE ABNORMALITY. HE IS CURRENTLY RECEIVING NORMAL SALINE AT 80 ML/HR, ZOSYN 3.375G IV TID, OTBS ACHS, HUMULIN R SLIDING SCALE, LOVENOX 40MG SC DAILY, AND HIS HOME MEDICATIONS WERE RESUMED. HOME MEDS INCLUDE: XANAX, ECOTRIN, LIPITOR, ZYRTEC, PLAVIX, ARICEPT, ZETIA, PEPCID, PROSCAR, LASIX, NEURONTIN, SINGULAIR, RANEXA, RESTORIL, ZANAFLEX, JARDIANCE, AND GEMTESA. WE WILL CONTINUE WITH CURRENT TREATMENT PLAN AND WOUND CARE WITH DAILY WET TO DRY DRESSINGS. OTHERWISE, WE WILL FOLLOW UP WITH AM LABS AND CONTINUE TO MONITOR. Past Medical Family Social History Allergies: Allergies No Known Drug Allergies Allergy (Verified 12/20/21 13:51) Review of Systems ROS changes noted: SEE HPI Vital Signs and I&O's Vital Signs: Vital Signs Temperature 98.5 F Temperature 98.2 F Pulse Rate [Bilateral Radial] 90 Pulse Rate [Bilateral Radial] 92 Respiratory Rate 18 Respiratory Rate 18 Blood Pressure [Left Arm] 111/57 Blood Pressure [Left Arm] 125/63 O2 Sat by Pulse Oximetry 93 O2 Sat by Pulse Oximetry 99 Intake and Output: Intake & Output 10/05/22 10/06/22 10/07/22 10/08/22 23:59 23:59 23:59 23:59 Intake Total 2169 / 2169 2585 / 2585 2845 / 2845 120 / 120 Output Total 2440 / 2440 3900 / 3900 1700 / 1700 1000 / 1000 Balance -271 / -271 -1315 / -1315 1145 / 1145 -880 / -880 Physical Exam Oriented: Normal Eyes: Normal Nose: Normal Respiratory: Normal Cardiovascular: Normal : Normal Auscultation: Bowel Sounds: Normal Tenderness: Normal Skin: Wound (BILATERAL LOWER EXTREMITIES) Musculoskeletal: Normal Speech Pattern: Clear and Appropriate Laboratory and Diagnostics Result Diagrams: 10/08/22 05:50 10/08/22 05:50 Labs: 10/03/22 16:00 Blood Blood Culture - Preliminary 10/03/22 15:38 Blood Blood Culture - Preliminary Laboratory WBC 6.4 X10^3/uL (3.6-10.0) 10/08/22 05:50 RBC 3.98 X10^6/uL (4.7-6.0) L 10/08/22 05:50 Hgb 9.9 g/dL (13.5-18.0) L 10/08/22 05:50 Hct 31.0 % (42.0-54.0) L 10/08/22 05:50 MCV 77.9 fL (80.0-100.0) L 10/08/22 05:50 MCH 24.9 pg (27.0-34.0) L 10/08/22 05:50 MCHC 31.9 g/dL (33.0-35.0) L 10/08/22 05:50 RDW 21.8 % (11.6-16.5) H 10/08/22 05:50 Plt Count 205 X10^3/uL (150.0-450.0) 10/08/22 05:50 Plt Count Comment Adequate (ADEQUATE) 10/08/22 05:50 MPV 7.5 fL (7.4-11.0) 10/08/22 05:50 Neut % (Auto) 62.7 % (42.0-75.0) 10/08/22 05:50 Lymph % (Auto) 21.0 % (21.0-51.0) 10/08/22 05:50 Christian % (Auto) 11.0 % (0.0-13.0) 10/08/22 05:50 Eos % (Auto) 4.5 % (0.9-2.9) H 10/08/22 05:50 Baso % (Auto) 0.8 % (0.2-1.0) 10/08/22 05:50 Neut # (Auto) 4.0 x10^3/uL (2.2-4.8) 10/08/22 05:50 Lymph # (Auto) 1.3 X10^3/uL (1.3-2.9) 10/08/22 05:50 Christian # (Auto) 0.7 x10^3/uL (0.3-0.8) 10/08/22 05:50 Eos # (Auto) 0.3 x10^3/uL (0.0-0.2) H 10/08/22 05:50 Baso # (Auto) 0.0 X10^3/uL (0.0-0.1) 10/08/22 05:50 Absolute Nucleated RBC 0.1 /100WBC 10/08/22 05:50 Plt Morphology Comment Normal (NORMAL) 10/08/22 05:50 RBC Morphology Abnormal (NORMAL) 10/08/22 05:50 Hypochromasia Slight A 10/08/22 05:50 Anisocytosis 1+ A 10/08/22 05:50 Microcytosis Slight A 10/08/22 05:50 Target Cells Slight A 10/08/22 05:50 Ovalocytes Slight A 10/05/22 05:11 Sodium 147 mmol/L (136-145) H 10/08/22 05:50 Corrected Sodium TNP 10/08/22 05:50 Potassium 3.6 mmol/L (3.5-5.1) 10/08/22 05:50 Chloride 107 mmol/L (98-107) 10/08/22 05:50 Carbon Dioxide 30.9 mmol/L (21-32) 10/08/22 05:50 BUN 30 mg/dL (7-18) H 10/08/22 05:50 Creatinine 1.65 mg/dL (0.70-1.30) H 10/08/22 05:50 Est GFR (MDRD) Af Amer 52 (>60) L 10/08/22 05:50 Est GFR (MDRD) Non-Af 43 (>60) L 10/08/22 05:50 Glucose 96 mg/dL (65-99) 10/08/22 05:50 POC Glucose (mg/dL) 85 mg/dL (65-99) 10/08/22 06:04 Calcium 8.0 mg/dL (8.5-10.1) L 10/08/22 05:50 Corrected Calcium 9.2 mg/dL (8.5-10.1) 10/08/22 05:50 Magnesium 1.7 mg/dL (2.0-2.9) L 10/08/22 05:50 Total Bilirubin 0.40 mg/dL (0.2-1.0) 10/08/22 05:50 AST 24 Units/L (15-37) 10/08/22 05:50 ALT 25 Units/L (12-78) 10/08/22 05:50 Alkaline Phosphatase 69 Units/L (46-116) 10/08/22 05:50 Total Protein 5.5 g/dL (6.4-8.2) L 10/08/22 05:50 Albumin 2.5 g/dL (3.4-5.0) L 10/08/22 05:50 Globulin 3.0 g/dL (2.5-4.5) 10/08/22 05:50 Albumin/Globulin Ratio 0.8 Ratio (1.1-2.1) L 10/08/22 05:50 Plan (1) Wound of lower extremity: Status: Acute
[2022-10-08] MEDS ORDERED: CONSULT PHARMACY - POTASSIUM & MAGNESIUM XX SCH (09:00)
[2022-10-08] MEDS ORDERED: MICRO K EXTEN CAP 10 MEQ PO SCH (09:00)
[2022-10-08] MEDS: PULMICORT NEB TX 0.5 MG NEB SCH (09:10)
[2022-10-08] MEDS: NS 1,000 ML IV 1,000 ML IV SCH (09:40)
[2022-10-08] MEDS: ZETIA TAB 10 MG PO SCH (09:41)
[2022-10-08] MEDS: LASIX PO SCH (09:41)
[2022-10-08] MEDS: COLACE CAP 100 MG PO SCH (09:41)
[2022-10-08] MEDS: ASPIRIN 81 MG CHEWTAB PO SCH (09:42)
[2022-10-08] MEDS: RANEXA PO SCH (09:42)
[2022-10-08] MEDS: PROSCAR PO SCH (09:43)
[2022-10-08] MEDS: LOVENOX INJ 40 MG SYR SC SCH (09:43)
[2022-10-08] MEDS: PLAVIX PO SCH (09:43)
[2022-10-08] MEDS: PEPCID TAB 40 MG PO SCH (09:43)
[2022-10-08] MEDS: ZyrTEC TAB 10 MG PO SCH (09:44)
[2022-10-08] MEDS: PATIENT'S HOME MEDICATION (Vibegron [Gemtesa] 75 mg tablet) PO SCH (09:44)
[2022-10-08] MEDS: MAG-OX TAB PO SCH ×2 (09:48→10:47)
[2022-10-08] MEDS: NORCO 7.5/325 MG TAB PO PRN (11:16)
[2022-10-08 17:21] VITALS: BP 132/63; PULSE 91; TEMP 97.8; O2SAT 97
--- NOTE | 2022-10-08 22:10 | VAS ---
HISTORYBilateral lower extremity wounds, cellulitis.STUDYBilateral lower extremity arterial DopplerCOMPARISONNone available.TECHNIQUEGrayscale and duplex color Doppler sonographic evaluation of the arteries of the lower extremities was performed.FINDINGSRight lower extremity: No abnormally elevated peak systolic velocity greater than 200 cm/second is identified. Abnormal monophasic waveforms are seen along the distal superficial femoral artery, the proximal popliteal artery, the proximal posterior tibial artery, the distal posterior tibial artery and the dorsalis pedis artery. Otherwise, biphasic waveforms are present.Left lower extremity: No abnormally elevated peak systolic velocity measuring greater than 200 cm/second is seen. Abnormal monophasic waveforms are seen proximally along the posterior tibial artery and along the dorsalis pedis artery.Soft tissues: No significant abnormality of the visualized surrounding soft tissues.IMPRESSIONMultifocal abnormal bilateral monophasic arterial waveforms in the lower extremities, consistent with hemodynamically significant peripheral artery disease.Electronically signed by: Figueroa Torres (Oct 08, 2022 22:09:27)
== END 2022-10-08 17:05 | disposition home health service (06) | DRG 603 ==
LOC: MED/SURG
PROVIDERS: ADMIT Internal Medicine; ATTEND Internal Medicine
DX: R60.0 Localized edema; I25.10 Atherosclerotic heart disease of native coronary artery without angina pectoris; I10 Essential (primary) hypertension; S81.801D Unspecified open wound, right lower leg, subsequent encounter; L03.116 Cellulitis of left lower limb; F41.8 Other specified anxiety disorders; K21.9 Gastro-esophageal reflux disease without esophagitis; X58.XXXD Exposure to other specified factors, subsequent encounter; S81.802D Unspecified open wound, left lower leg, subsequent encounter; Z79.01 Long term (current) use of anticoagulants; L03.115 Cellulitis of right lower limb; R26.89 Other abnormalities of gait and mobility; I95.89 Other hypotension

== ENCOUNTER 2024-02-17 16:12 | Observation (INO) ==
[2024-02-17] MEDS ORDERED: NS 1,000 ML IV 1,000 ML ONE (16:31)
--- NOTE | 2024-02-17 16:42 | DR.NOSEBLE ---
HPI Time Seen Time Seen by Provider: 02/17/24 16:42 COVID-19 Coronavirus risk:travel/contact w/high risk person: No Has patient experienced Coronavirus symptoms: No PMH PMH Past Medical History: Arthritis, COPD, CVA, Diabetes, GERD, Gout, Hypertension, Kidney Stones and Sleep Apnea Past Surgical History: Yes Surgical History: Joint Replacement Family History Family Medical History: Diabetes Mellitus Social History Do you use any recreational Drugs:: No Travel Risk Coronavirus risk:travel/contact w/high risk person: No Has patient experienced Coronavirus symptoms: No PE Vital Signs Vitals: Vital Signs Temperature 97.6 F Temperature 97.6 F Pulse Rate 84 Respiratory Rate 16 Respiratory Rate 14 Blood Pressure [Left Arm] 99/54 Blood Pressure 101/58 Blood Pressure 95/52 Blood Pressure 91/57 Blood Pressure 105/57 Blood Pressure 99/58 Blood Pressure 99/58 Blood Pressure 95/55 Blood Pressure 99/56 Blood Pressure 95/52 Blood Pressure 95/51 Blood Pressure 98/56 Blood Pressure 87/47 O2 Sat by Pulse Oximetry 96 O2 Sat by Pulse Oximetry 97 ROR Labs Reviewed 02/17/24 16:35 02/17/24 16:35 Laboratory: WBC 5.1 X10^3/uL (3.6-10.0) 02/17/24 16:35 RBC 4.55 X10^6/uL (4.7-6.0) L 02/17/24 16:35 Hgb 12.1 g/dL (13.5-18.0) L 02/17/24 16:35 Hct 37.7 % (42.0-54.0) L 02/17/24 16:35 MCV 82.9 fL (80.0-100.0) 02/17/24 16:35 MCH 26.7 pg (27.0-34.0) L 02/17/24 16:35 MCHC 32.2 g/dL (33.0-35.0) L 02/17/24 16:35 RDW 17.7 % (11.6-16.5) H 02/17/24 16:35 Plt Count 178 X10^3/uL (150.0-450.0) 02/17/24 16:35 MPV 7.9 fL (7.4-11.0) 02/17/24 16:35 Neut % (Auto) 67.9 % (42.0-75.0) 02/17/24 16:35 Lymph % (Auto) 17.4 % (21.0-51.0) L 02/17/24 16:35 [place] % (Auto) 12.0 % (0.0-13.0) 02/17/24 16:35 Eos % (Auto) 1.6 % (0.9-2.9) 02/17/24 16:35 Baso % (Auto) 1.1 % (0.2-1.0) H 02/17/24 16:35 Neut # (Auto) 3.4 x10^3/uL (2.2-4.8) 02/17/24 16:35 Lymph # (Auto) 0.9 X10^3/uL (1.3-2.9) L 02/17/24 16:35 [place] # (Auto) 0.6 x10^3/uL (0.3-0.8) 02/17/24 16:35 Eos # (Auto) 0.1 x10^3/uL (0.0-0.2) 02/17/24 16:35 Baso # (Auto) 0.1 X10^3/uL (0.0-0.1) 02/17/24 16:35 Absolute Nucleated RBC 0.1 /100WBC 02/17/24 16:35 Sodium 139 mmol/L (136-145) 02/17/24 16:35 Corrected Sodium 142 mmol/L (136-145) 02/17/24 16:35 Potassium 4.0 mmol/L (3.5-5.1) 02/17/24 16:35 Chloride 103 mmol/L (98-107) 02/17/24 16:35 Carbon Dioxide 30.2 mmol/L (21-32) 02/17/24 16:35 BUN 30 mg/dL (7-18) H 02/17/24 16:35 Creatinine 1.72 mg/dL (0.70-1.30) H 02/17/24 16:35 Est GFR (MDRD) Af Amer 49 (>60) L 02/17/24 16:35 Est GFR (MDRD) Non-Af 41 (>60) L 02/17/24 16:35 Glucose 233 mg/dL (65-99) H 02/17/24 16:35 Calcium 8.7 mg/dL (8.5-10.1) 02/17/24 16:35 Corrected Calcium 9.6 mg/dL (8.5-10.1) 02/17/24 16:35 Total Bilirubin 1.10 mg/dL (0.2-1.0) H 02/17/24 16:35 AST 28 Units/L (15-37) 02/17/24 16:35 ALT 28 Units/L (12-78) 02/17/24 16:35 Alkaline Phosphatase 107 Units/L (46-116) 02/17/24 16:35 Total Protein 6.5 g/dL (6.4-8.2) 02/17/24 16:35 Albumin 2.9 g/dL (3.4-5.0) L 02/17/24 16:35 Globulin 3.6 g/dL (2.5-4.5) 02/17/24 16:35 Albumin/Globulin Ratio 0.8 Ratio (1.1-2.1) L 02/17/24 16:35 Opioid Opioid Risk Tool Age (Rohan box if 16-45): No History of Preadolescent Sexual Abuse: No Total: 0 Total Score Risk Category: Low Risk Copyright: Ned REINOSO predicting aberrant behaviors Discharge Plan Diagnosis Discharge Problem: Acute hypotension, Weakness, Epistaxis Discharge Plan Patient Disposition: 01 HOME, SELF-CARE Condition: Stable Orders to Discharge Patient Discharge Orders: Transfer (Routine); Ordered 02/17/24 Ordered By: MELONIE CAMEJO
[2024-02-17 16:54] LABS: BASOPHILS # (AUTO) 0.1 X10^3/uL (0.0-0.1); BASOPHILS % (AUTO) 1.1 % (0.2-1.0); EOSINOPHILS # (AUTO) 0.1 x10^3/uL (0.0-0.2); EOSINOPHILS % (AUTO) 1.6 % (0.9-2.9); HEMATOCRIT 37.7 % (42.0-54.0); HEMOGLOBIN 12.1 g/dL (13.5-18.0); LYMPHOCYTES # (AUTO) 0.9 X10^3/uL (1.3-2.9); LYMPHOCYTES % (AUTO) 17.4 % (21.0-51.0); MEAN CORPUSCULAR HEMOGLOBIN 26.7 pg (27.0-34.0); MEAN CORPUSCULAR HGB CONC 32.2 g/dL (33.0-35.0); MEAN CORPUSCULAR VOLUME 82.9 fL (80.0-100.0); MEAN PLATELET VOLUME 7.9 fL (7.4-11.0); MONOCYTES # (AUTO) 0.6 x10^3/uL (0.3-0.8); NEUTROPHILS # (AUTO) 3.4 x10^3/uL (2.2-4.8); NEUTROPHILS % (AUTO) 67.9 % (42.0-75.0); PLATELET COUNT 178 X10^3/uL (150.0-450.0); RED BLOOD COUNT 4.55 X10^6/uL (4.7-6.0); RED CELL DISTRIBUTION WIDTH 17.7 % (11.6-16.5); WHITE BLOOD COUNT 5.1 X10^3/uL (3.6-10.0)
[2024-02-17 17:16] LABS: ALBUMIN 2.9 g/dL (3.4-5.0); CALCIUM 8.7 mg/dL (8.5-10.1); CARBON DIOXIDE 30.2 mmol/L (21-32); COR CA(FOR HYPOALB) 9.6 mg/dL (8.5-10.1); CREATININE 1.72 mg/dL (0.70-1.30); TOTAL PROTEIN 6.5 g/dL (6.4-8.2)
[2024-02-17] MEDS: NS 500 ML IV 500 ML IV ONE (18:12)
[2024-02-18] MEDS: NS 1,000 ML IV 1,000 ML IV SCH (01:09)
[2024-02-18 01:55] VITALS: BMI 35.3
[2024-02-18 01:57] VITALS: RESP 18
[2024-02-18 06:26] LABS: BASOPHILS % (AUTO) 0.6 % (0.2-1.0); EOSINOPHILS # (AUTO) 0.2 x10^3/uL (0.0-0.2); EOSINOPHILS % (AUTO) 4.2 % (0.9-2.9); HEMATOCRIT 34.1 % (42.0-54.0); HEMOGLOBIN 11.3 g/dL (13.5-18.0); INR 1.26 (0.8-1.3); LYMPHOCYTES # (AUTO) 0.9 X10^3/uL (1.3-2.9); LYMPHOCYTES % (AUTO) 20.1 % (21.0-51.0); MEAN CORPUSCULAR HEMOGLOBIN 27.1 pg (27.0-34.0); MEAN CORPUSCULAR HGB CONC 33.1 g/dL (33.0-35.0); MEAN CORPUSCULAR VOLUME 81.9 fL (80.0-100.0); MEAN PLATELET VOLUME 8.2 fL (7.4-11.0); MONOCYTES # (AUTO) 0.5 x10^3/uL (0.3-0.8); MONOCYTES % (AUTO) 12.2 % (0.0-13.0); NEUTROPHILS # (AUTO) 2.8 x10^3/uL (2.2-4.8); NEUTROPHILS % (AUTO) 62.9 % (42.0-75.0); PLATELET COUNT 174 X10^3/uL (150.0-450.0); RED BLOOD COUNT 4.17 X10^6/uL (4.7-6.0); RED CELL DISTRIBUTION WIDTH 17.3 % (11.6-16.5); WHITE BLOOD COUNT 4.5 X10^3/uL (3.6-10.0)
[2024-02-18 06:40] LABS: ALANINE AMINOTRANSFERASE 21 Units/L (12-78); ALBUMIN 2.4 g/dL (3.4-5.0); ALKALINE PHOSPHATASE 92 Units/L (46-116); ASPARTATE AMINO TRANSFERASE 24 Units/L (15-37); BLOOD UREA NITROGEN 28 mg/dL (7-18); CALCIUM 8.4 mg/dL (8.5-10.1); CARBON DIOXIDE 29.5 mmol/L (21-32); CHLORIDE 107 mmol/L (98-107); COR CA(FOR HYPOALB) 9.7 mg/dL (8.5-10.1); COR NA(FOR HYPERGLY) 144 mmol/L (136-145); CREATININE 1.41 mg/dL (0.70-1.30); GLUCOSE 122 mg/dL (65-99); MAGNESIUM 2.1 mg/dL (2.0-2.9); SODIUM 143 mmol/L (136-145); TOTAL PROTEIN 5.7 g/dL (6.4-8.2); eGFR NON BLACK RACES 51 (>60)
[2024-02-18] MEDS: PULMICORT NEB TX 0.5 MG NEB SCH (08:56)
[2024-02-18] MEDS ORDERED: ALPRAZOLAM ODT PO PRN (09:00)
[2024-02-18] MEDS: ZETIA TAB 10 MG PO SCH (10:18)
[2024-02-18] MEDS: FARXIGA PO SCH (10:18)
[2024-02-18] MEDS: NEURONTIN CAP 300 MG PO SCH (10:18)
[2024-02-18] MEDS: PEPCID TAB 40 MG PO SCH (10:18)
[2024-02-18] MEDS: ARICEPT TAB 10 MG PO SCH (10:18)
[2024-02-18] MEDS: ASPIRIN EC 81 MG PO SCH (10:46)
[2024-02-18] MEDS: PLAVIX PO SCH (10:46)
[2024-02-18] MEDS: FESOTERODINE 4 MG PO SCH (11:37)
[2024-02-18] MEDS: PATIENT'S HOME MEDICATION (Vibegron [Gemtesa] 75 mg tablet) PO SCH (11:39)
[2024-02-18] MEDS: NovoLIN R (or HumuLIN R) SUBCUT PRN (12:40)
[2024-02-18 12:59] VITALS: BP 112/66; PULSE 88; TEMP 97.6; O2SAT 99
[2024-02-18] MEDS ORDERED: SNACK - Diabetic Appropriate PO SCH (20:00)
[2024-02-18] MEDS ORDERED: LIPITOR TAB 20 MG PO SCH (21:00)
--- NOTE | 2024-02-24 10:17 | DR.SSS ---
SHORT STAY SUMMARY Admission Date Date of Admission: 02/17/24 Discharge Date Discharge Date: 02/18/24 Admission Diagnoses Admission Diagnoses: nose bleed dehydration IRENE Discharge Diagnoses Discharge Diagnoses: Nose bleed IRENE Dehydration Hypotension Chief Complaint Chief Complaint: nose bleed History of Present Illness History of Present Illness: Mr Pepper is a 78y/o male with a PMH of DM, GERD, CVA, COPD and HTN presented with nose bleed. He was seen at PCP office and was advised to go to the ER for evaluation since patient takes asa and plavix. ER work up showed elevated creatinine. His nose bleed had stopped. He was started on gentle hydration and admitted for further management. His BP was noted to be low on admission. Past Medical History Past Medical History: Arthritis, COPD, CVA, Diabetes, GERD, Gout, Hypertension, Kidney Stones and Sleep Apnea Past Surgical History Surgical History: Joint Replacement Allergies Allergies Allergy/AdvReac Type Severity Reaction Status Date / Time No Known Drug Allergies Allergy Verified 07/27/23 20:46 Medications Home Medications: No Known Drug Allergies Allergy (Verified 07/27/23 20:46) CONTINUE taking the following medications gabapentin 300 mg capsule 300 mg PO QDAY 02/17/24 [History] isosorbide mononitrate 30 mg tablet,extended release 24 hr 30 mg PO DAILY 02/17/24 [History] montelukast 10 mg tablet 10 mg PO QDAY 02/17/24 [History] prasterone (dhea) 25 mg tablet (DHEA) 25 mg PO DAILY 02/17/24 [History] spironolactone 25 mg tablet 12.5 mg PO QDAY 02/17/24 [History] Family History Family Medical History: Diabetes Mellitus Social History Does patient currently use any type of tobacco product: No Have you used tobacco products in the last 12 months: No Type of Tobacco Use: None Does any household member use tobacco: No Alcohol Use: None Review of Systems Constitutional: Weakness Eyes: No Symptoms Reported ENT: Other (nose bleed) Respiratory: No Symptoms Reported Cardiovascular: No Symptoms Reported Gastrointestinal: No Symptoms Reported Genitourinary: No Symptoms Reported Musculoskeletal: No Symptoms Reported Skin: No Symptoms Reported Neurological: No Symptoms Reported Physical Exam Vital Signs: Last Vital Signs Temp 97.6 F 02/18/24 12:00 Pulse 88 02/18/24 12:00 Resp 18 02/18/24 12:00 BP 112/66 02/18/24 12:00 Pulse Ox 99 02/18/24 12:00 O2 Del Method Room Air 02/18/24 12:00 O2 Flow Rate 2 02/18/24 08:56 FiO2 28 02/18/24 08:56 Oriented: Normal Eyes: Normal Throat: Normal Respiratory: Clear Throughout Cardiovascular: Normal Auscultation: Bowel Sounds: Normal Palpation: Normal Tenderness: Normal Skin: Normal Musculoskeletal: Normal Psychiatric: Normal Mood Description: Calm Affect: Normal Speech Pattern: Clear and Appropriate Labs Labs: Laboratory Last Values WBC 4.5 X10^3/uL (3.6-10.0) 02/18/24 05:17 RBC 4.17 X10^6/uL (4.7-6.0) L 02/18/24 05:17 Hgb 11.3 g/dL (13.5-18.0) L 02/18/24 05:17 Hct 34.1 % (42.0-54.0) L 02/18/24 05:17 MCV 81.9 fL (80.0-100.0) 02/18/24 05:17 MCH 27.1 pg (27.0-34.0) 02/18/24 05:17 MCHC 33.1 g/dL (33.0-35.0) 02/18/24 05:17 RDW 17.3 % (11.6-16.5) H 02/18/24 05:17 Plt Count 174 X10^3/uL (150.0-450.0) 02/18/24 05:17 MPV 8.2 fL (7.4-11.0) 02/18/24 05:17 Neut % (Auto) 62.9 % (42.0-75.0) 02/18/24 05:17 Lymph % (Auto) 20.1 % (21.0-51.0) L 02/18/24 05:17 [place] % (Auto) 12.2 % (0.0-13.0) 02/18/24 05:17 Eos % (Auto) 4.2 % (0.9-2.9) H 02/18/24 05:17 Baso % (Auto) 0.6 % (0.2-1.0) 02/18/24 05:17 Neut # (Auto) 2.8 x10^3/uL (2.2-4.8) 02/18/24 05:17 Lymph # (Auto) 0.9 X10^3/uL (1.3-2.9) L 02/18/24 05:17 [place] # (Auto) 0.5 x10^3/uL (0.3-0.8) 02/18/24 05:17 Eos # (Auto) 0.2 x10^3/uL (0.0-0.2) 02/18/24 05:17 Baso # (Auto) 0.0 X10^3/uL (0.0-0.1) 02/18/24 05:17 Absolute Nucleated RBC 0.0 /100WBC 02/18/24 05:17 PT 15.5 SECONDS (11.8-14.3) 02/18/24 05:17 INR Target Range - 02/18/24 05:17 INR 1.26 (0.8-1.3) 02/18/24 05:17 APTT 33.5 SECONDS (22.9-36.5) 02/18/24 05:17 PTT Comment - 02/18/24 05:17 Sodium 143 mmol/L (136-145) 02/18/24 05:17 Corrected Sodium 144 mmol/L (136-145) 02/18/24 05:17 Potassium 4.0 mmol/L (3.5-5.1) 02/18/24 05:17 Chloride 107 mmol/L (98-107) 02/18/24 05:17 Carbon Dioxide 29.5 mmol/L (21-32) 02/18/24 05:17 BUN 28 mg/dL (7-18) H 02/18/24 05:17 Creatinine 1.41 mg/dL (0.70-1.30) H 02/18/24 05:17 Est GFR (MDRD) Af Amer > 60 (>60) 02/18/24 05:17 Est GFR (MDRD) Non-Af 51 (>60) L 02/18/24 05:17 Glucose 122 mg/dL (65-99) H 02/18/24 05:17 POC Glucose (mg/dL) 194 mg/dL (65-99) H 02/18/24 11:06 Calcium 8.4 mg/dL (8.5-10.1) L 02/18/24 05:17 Corrected Calcium 9.7 mg/dL (8.5-10.1) 02/18/24 05:17 Magnesium 2.1 mg/dL (2.0-2.9) 02/18/24 05:17 Total Bilirubin 0.80 mg/dL (0.2-1.0) 02/18/24 05:17 AST 24 Units/L (15-37) 02/18/24 05:17 ALT 21 Units/L (12-78) 02/18/24 05:17 Alkaline Phosphatase 92 Units/L (46-116) 02/18/24 05:17 Total Protein 5.7 g/dL (6.4-8.2) L 02/18/24 05:17 Albumin 2.4 g/dL (3.4-5.0) L 02/18/24 05:17 Globulin 3.3 g/dL (2.5-4.5) 02/18/24 05:17 Albumin/Globulin Ratio 0.7 Ratio (1.1-2.1) L 02/18/24 05:17 Hospital Course Hospital Course: Patient was admitted for hypotension and IRENE. He was started on gentle hydration and BP meds were held. His labs were monitored daily and electrolytes replaced as needed. His renal function improved with fluids. His BP was also doing better. He was doing well. He was stable to be discharged home and f/u with PCP. He was told to monitor his BP daily and keep a log. He was told to stop lasix for 3 days and monitor BP. Discharge Medications Discharge Medications: Home Medication List gabapentin 300 mg capsule 300 mg PO QDAY 02/17/24 [History] isosorbide mononitrate 30 mg tablet,extended release 24 hr 30 mg PO DAILY 02/17/24 [History] montelukast 10 mg tablet 10 mg PO QDAY 02/17/24 [History] prasterone (dhea) 25 mg tablet (DHEA) 25 mg PO DAILY 02/17/24 [History] spironolactone 25 mg tablet 12.5 mg PO QDAY 02/17/24 [History] Prescriptions: Discharge Disposition Discharge Disposition: home Discharge Plan Discharge Plan Patient Disposition: HOME, SELF-CARE Condition: Stable Health Concerns: Post Hospitalization: new medications and changes needed to prevent readmission or further decline. Pt educated and given instructions on all concerns. Care Plan Goals: Problem: Activity Intolerance Goal: Increased tolerance to activity Instructions: Follow provided instructions. Follow up with primary physician as directed. Contact primary care physician or report to the closest Emergency Room if condition worsens. Plan of Treatment: Continue with present treatment and follow up plan. Pt is to keep follow up appointment as instructed and take medications as ordered. Prescription drug monitoring program results: PDMP reviewed and no concerns identified Prescriptions: Continued aspirin 81 mg Capsule,Delayed Release(Dr/Ec) 81 mg PO DAILY clopidogrel 75 mg tablet 75 mg PO DAILY Patient Comments: TAKE ONE TABLET BY MOUTH EVERY DAY atorvastatin 20 mg tablet 20 mg PO QPM donepezil 10 mg tablet 10 mg PO QDAY famotidine 40 mg tablet 40 mg PO QDAY alprazolam 0.5 mg tablet 0.5 mg PO BID PRN (Reason: anxiety) fesoterodine 4 mg tablet extended release 24 hr 2 mg PO QDAY fluticasone propionate 50 mcg/actuation [place],Suspension 1 spray INTRANASAL BID Rx Instructions: administer into each nostril insulin degludec [Tresiba FlexTouch U-100] 100 unit/mL (3 mL) Insulin Pen 16 unit SUBCUT QDAY insulin degludec [Tresiba FlexTouch U-100] 100 unit/mL (3 mL) Insulin Pen 12 unit SUBCUT HS tramadol 50 mg tablet 50 - 100 mg PO Q8H PRN (Reason: pain) prasterone (dhea) [DHEA] 25 mg Tablet 25 mg PO DAILY isosorbide mononitrate 30 mg Tablet Extended Release 24 Hr 30 mg PO DAILY spironolactone 25 mg tablet 12.5 mg PO QDAY gabapentin 300 mg capsule 300 mg PO QDAY montelukast 10 mg tablet 10 mg PO QDAY furosemide [Lasix] 40 mg Tablet 40 mg PO DAILY montelukast 10 mg tablet 10 mg PO QDAY allopurinol 300 mg tablet 300 mg PO QDAY ezetimibe 10 mg tablet 10 mg PO QDAY ranolazine 500 mg tablet extended release 12 hr 500 mg PO BID budesonide-formoterol [Symbicort] 160-4.5 mcg/actuation HFA aerosol inhaler 2 puff inhalation BID PRN Jardiance 10 mg tablet 10 mg PO QDAY Gemtesa 75 mg tablet 75 mg PO QDAY tamsulosin 0.4 mg capsule 0.4 mg PO DAILY Qty: 30 3RF Rx Instructions: TAKE ONE TABLET DAILY Orders to Discharge Patient Discharge Orders: Discharge (Routine); Ordered 02/18/24 Ordered By: Korina Ruiz Follow ups/Referrals Follow ups/Referrals: Lyn Garcia [Primary Care Provider] - 02/26/24 1:50 pm Instructions Instructions: Hypotension, [id number], Weakness, [id number] Activity Restrictions/Additional Instructions: Monitor blood pressure daily and take log to PCP office. Stop lasix for 3 days. If blood pressure remaining below 100/80 then do not take lasix, spironolactone and isosorbide mononitrate. Discuss with primary care if having low blood pressure. Stand Alone Forms: Find Help Web Site, Post Hospital Follow Up Care
== END 2024-02-18 14:35 | disposition home or self-care (01) ==
LOC: MED/SURG 16:12 → ER 16:12 → MED/SURG 02-18 00:20
PROVIDERS: ADMIT Family Medicine; ATTEND Internal Medicine
DX: R53.1 Weakness; E86.0 Dehydration; N17.8 Other acute kidney failure; K21.9 Gastro-esophageal reflux disease without esophagitis; I95.89 Other hypotension; I10 Essential (primary) hypertension; J44.9 Chronic obstructive pulmonary disease, unspecified; R04.0 Epistaxis; E11.65 Type 2 diabetes mellitus with hyperglycemia; Z79.01 Long term (current) use of anticoagulants